=== PATIENT | female | born 1940 | race Caucasian/White ===

== ENCOUNTER → 2023-07-30 12:25 | Outpatient (REF) | payer MEDICARE, OTHER, SELFPAY | LOC: HWRAD 12:25 | PROVIDERS: ATTENDING PHYSICIAN Physician Assistant; FAMILY PHYSICIAN Family Medicine | DX: M79.672 Pain in left foot (principal) | CPT/HCPCS: 73630 ==

== ENCOUNTER → 2023-10-20 11:44 | Outpatient (REF) | payer MEDICARE, OTHER, SELFPAY ==
[2023-10-20 16:44] LABS: % Basophils 0.7 % (0-2); % Eosinophils 3.1 % (0-6); % Immature Granulocytes 0.2 % (0-0.5); % Lymphocytes 19.7 % (20.5-51.1); % Monocytes 9.6 % (1.7-9.3); % Neutrophils 66.7 % (42.2-75.2); Absolute Eosinophils 0.2 10^3/uL (0-0.7); Absolute Lymphocytes 1.2 10^3/uL (1.2-3.4); Absolute Monocytes 0.6 10^3/uL (0.1-0.6); Absolute Neutrophils 4.1 10^3/uL (1.4-6.5); Hematocrit 38.5 % (37.0-47.0); Hemoglobin 12.9 g/dL (12.0-16.0); Mean Corp Hgb Conc. 33.5 g/dL (33.0-37.0); Mean Corpuscular Hgb 31.2 pg (27.0-31.0); Mean Platelet Volume 11.1 fL (7.4-10.4); Nucleated Red Blood Cells % 0 %; Platelet Count 181 10^3/uL (130-400); Red Blood Cell Count 4.14 10^6/uL (4.20-5.40); Red Cell Dist. Width 13.3 % (11.5-14.5); White Blood Cell Count 6.2 10^3/uL (4.8-10.8)
[2023-10-20 16:49] LABS: Blood Urea Nitrogen 24 mg/dl (7-17); Glucose 93 mg/dl (70-99)
[2023-10-20 16:50] LABS: ALT (SGPT) 16 U/L (0-35); AST (SGOT) 33 U/L (14-36); Albumin 4.6 g/dl (3.5-5.0); Alkaline Phosphatase 78 U/L (38-126); Carbon Dioxide 28 mmol/L (22-30); Chloride 103 mmol/L (98-107); HDL Cholesterol 67 mg/dl; LDL Cholesterol, Calculated 63 mg/dl; Potassium 4.1 mmol/L (3.5-5.1); Sodium 140 mmol/L (135-145); Total Bilirubin 0.9 mg/dl (0.2-1.3); Total Cholesterol 148 mg/dl (50-199); Total Protein 7.4 g/dl (6.3-8.2); Triglyceride 90 mg/dl (10-149); Very Low Density Lipoprotein 18 mg/dl (0-30); eGFR > 60.00
[2023-10-20 17:03] LABS: NT-proBNP 542 pg/ml
[2023-10-20 17:19] LABS: TSH Reflex To Free T4 1.64 uIU/ml (0.47-4.68)
== END ==
LOC: HWLAB 11:44
PROVIDERS: ATTENDING PHYSICIAN Internal Medicine Cardiovascular Disease; FAMILY PHYSICIAN Family Medicine
DX: I10 Essential (primary) hypertension (principal); E04.1 Nontoxic single thyroid nodule; I48.0 Paroxysmal atrial fibrillation; Z79.01 Long term (current) use of anticoagulants; I50.32 Chronic diastolic (congestive) heart failure
CPT/HCPCS: 36415; 80053; 80061; 83880; 84443; 85025

== ENCOUNTER → 2023-11-14 08:50 | Outpatient (REF) | payer MEDICARE, OTHER, SELFPAY | LOC: HWRAD 08:50 | PROVIDERS: ATTENDING PHYSICIAN Family Medicine | DX: M81.0 Age-related osteoporosis without current pathological fracture (principal); Z12.31 Encounter for screening mammogram for malignant neoplasm of breast | CPT/HCPCS: 77063; 77067; 77080 ==

== ENCOUNTER → 2023-11-21 10:57 | Outpatient (REF) | payer MEDICARE, OTHER, SELFPAY | LOC: HWRAD 10:57 | PROVIDERS: ATTENDING PHYSICIAN Nurse Practitioner Family | DX: M79.671 Pain in right foot (principal) | CPT/HCPCS: 73630 ==

== ENCOUNTER → 2023-12-11 09:11 | Outpatient (REF) | payer MEDICARE, OTHER, SELFPAY | LOC: RAD 09:11 | PROVIDERS: ATTENDING PHYSICIAN Internal Medicine Gastroenterology; FAMILY PHYSICIAN Family Medicine | DX: R13.19 Other dysphagia (principal) | CPT/HCPCS: 74221 ==

== ENCOUNTER 2023-12-26 16:25 | Inpatient (IN) | payer MEDICARE, OTHER, SELFPAY ==
[2023-12-26] VITALS (11 sets, daily range): BP systolic 117–179; BP diastolic 58–87; BMI 39.8; BMI 38.8
--- NOTE | 2023-12-26 10:45 | EDRN ---
Emeka GIORDANO in room w/pt at this time.
[2023-12-26 10:50] LABS: % Basophils 0.7 % (0-2); % Eosinophils 3.4 % (0-6); % Immature Granulocytes 0.2 % (0-0.5); % Lymphocytes 19.3 % (20.5-51.1); % Neutrophils 64.4 % (42.2-75.2); Absolute Eosinophils 0.2 10^3/uL (0-0.7); Absolute Monocytes 0.6 10^3/uL (0.1-0.6); Absolute Neutrophils 3.4 10^3/uL (1.4-6.5); Hematocrit 37.8 % (37.0-47.0); Hemoglobin 12.7 g/dL (12.0-16.0); Mean Corp Hgb Conc. 33.6 g/dL (33.0-37.0); Mean Corpuscular Hgb 31.1 pg (27.0-31.0); Mean Corpuscular Volume 92.4 fL (81.0-99.0); Nucleated Red Blood Cells % 0 %; Platelet Count 198 10^3/uL (130-400); Red Blood Cell Count 4.09 10^6/uL (4.20-5.40); Red Cell Dist. Width 13.5 % (11.5-14.5); White Blood Cell Count 5.3 10^3/uL (4.8-10.8)
--- NOTE | 2023-12-26 10:52 | ED.GENMED ---
History of Present Illness
General
Chief Complaint: Chest Pain
Source: patient
Time Seen by Provider: 12/26/23 10:41
History of Present Illness
History of Present Illness:
83yo female with a history of atrial fibrillation, pacemaker, HTN, HLD, COPD presenting via EMS for evaluation of chest pain. Patient reports feeling unwell last evening. She started to develop central chest discomfort around 2 AM. Her chest
discomfort worsened while she was in the car with her son this morning prompting EMS call. Patient states it feels like something is sitting there and 'something does not feel right.' Patient received aspirin and nitroglycerin prehospital and is
currently feeling improved. She denies any diaphoresis, nausea, vomiting, dizziness, syncope, leg swelling.
Past History
Past History
ED Past Medical History: Arrthythmia (Atrial fibrillation), Asthma, COPD, HTN, Hypercholesterolemia and Other (ceervical radiculopathy); Negative CHF or [place]
ED Past Surgical History: , Gynecological and Orthopedic
Social History
Tobacco: Non-smoker
Alcohol: None
Drug: None
Personal: Single
Living: with family
Employment: Retired
Family History
Family History: Sudden
Phy Exam
General Physical Exam
General Presentation: well appearing and no apparent distress
General age: appears stated age
General Skin: warm and dry
General Habitus: elderly
General Mental: alert
Cardiovascular Exam
Cardiovascular Exam: no murmur and irregularly irregular
Pulmonary Exam
Pulmonary Exam: lungs clear, no respiratory distress and no crackles
Gastrointestinal Exam
Gastrointestinal Exam: non tender, soft and non distended
Musculoskeletal Exam
Musculoskeletal Exam: no edema
Skin Exam
Skin Exam: normal color and warm/dry
Psychiatric Exam
Psychiatric Exam: normal mood/affect
Scores
Heart Score for Chest Pain Patients
STEMI patient?: No
History: Moderately Suspicious
ECG: Nonspecific Repolarization
Age: >/= 65 years
Risk Factors: >/= 3 Risk Factors or History of CAD
Troponin: </= Normal Limit
Heart Score for Chest Pain Patients: 6
Heart Score Risk: 20.3% MACE over next 6 weeks
Course
Orders/Labs/Results
Orders:
Orders
12/26/23 10:07
Electrocardiogram (*1) Urgent
Reason for Study: Chest Pain
Cardiac Monitoring- Treatment ONCE
EKG- Treatment ONCE
IV Insert/Care/Rem.- Treatment PRN
12/26/23 10:34
Complete Blood Count/With Diff Urgent
Comprehensive Metabolic Panel Urgent
Troponin I Urgent
12/26/23 10:53
CR Chest - 2 Views Urgent
Comment:
Reason For Exam: CP
12/26/23 12:32
Electrocardiogram (*1) Urgent
Reason for Study: Chest Pain
EKG- Treatment ONCE
12/26/23 13:59
Troponin I Urgent
12/26/23 15:40
Heparin 4,000 units IV NOW STA
12/26/23 15:41
PTT Urgent
Comment: Obtain baseline before beginning heparin infusion if not already collected
Heparin Protocol- PTT Orders As Directed
PTT per Heparin protocol: -Obtain CBC and baseline PTT - if not already collected.
-Obtain PTT 6 hours from start of infusion. Then, every 6 hours until 2 consecutive
PTT's are therapeutic. Then, PTT Daily.
-With each rate change, obtain PTT every 6 hours until 2 consecutive PTT's are
therapeutic. Then, PTT Daily.
Notify MD As Directed
Notify physician if: PTT is greater than or equal to 200.
12/26/23 15:45
Heparin 04837 Units/250 ml 25,000 units in 250 ml IV PER PROTOCOL
Weight to be used for heparin protocol in kilograms (kg):: 98.5
Protocol:: Cardiac Tx/Acute Coronary
PTT Goal Range to be used:: PTT 73 to 111 seconds
Order type:: Initial
INITIAL Infusion Dose (UNITS/KG/hr) & then follow protocol:: 12 units/kg/hr
Infusion Dose in UNITS/hr & then follow protocol (UNITS/hr):: 1,000
INFUSION RATE in mL/hr & then follow protocol (mL/hr):: 10
PTT less than or equal to 64 seconds:: Increase rate by 200 units/hr (+ 2 mL/hr)
PTT 64.1 to 72.9 seconds:: Increase rate by 100 units/hr (+ 1 mL/hr)
PTT 73 to 111 seconds:: Target Range. No change in rate.
PTT 111.1 to 130.9 seconds:: Decrease rate by 100 units/hr (- 1 mL/hr)
PTT 131 to 199.9 seconds:: HOLD for 1 hr. Then decrease rate by 200 units/hr (- 2 mL/hr)
PTT greater than or equal to 200 seconds:: HOLD for 2 hrs & Notify Provider. Then decrease by 200 units/hr (-
2 mL/hr)
Lab follow-up:: Each change, PTT q6h until 2 consecutive are therapeutic. Then PTT
daily.
12/28/23 06:00
Complete Blood Count/No Diff Q2D
Comment: Notify MD if platelet count is <130,000 or decreases by 50% from baseline
12/30/23 06:00
Complete Blood Count/No Diff Q2D
Comment: Notify MD if platelet count is <130,000 or decreases by 50% from baseline
01/01/24 06:00
Complete Blood Count/No Diff Q2D
Comment: Notify MD if platelet count is <130,000 or decreases by 50% from baseline
01/03/24 06:00
Complete Blood Count/No Diff Q2D
Comment: Notify MD if platelet count is <130,000 or decreases by 50% from baseline
01/05/24 06:00
Complete Blood Count/No Diff Q2D
Comment: Notify MD if platelet count is <130,000 or decreases by 50% from baseline
01/07/24 06:00
Complete Blood Count/No Diff Q2D
Comment: Notify MD if platelet count is <130,000 or decreases by 50% from baseline
01/09/24 06:00
Complete Blood Count/No Diff Q2D
Comment: Notify MD if platelet count is <130,000 or decreases by 50% from baseline
01/11/24 06:00
Complete Blood Count/No Diff Q2D
Comment: Notify MD if platelet count is <130,000 or decreases by 50% from baseline
Abnormal Lab Results
12/26/23
10:34
RBC 4.09 L 10^6/uL
(4.20-5.40)
MCH 31.1 H pg
(27.0-31.0)
Absolute Lymphs (auto) 1.0 L 10^3/uL
(1.2-3.4)
Lymphocytes % 19.3 L %
(20.5-51.1)
Monocytes % 12.0 H %
(1.7-9.3)
BUN 27 H mg/dl
(7-17)
Glucose 111 H mg/dl
(70-99)
12/26/23 10:34
12/26/23 10:34
Vital Signs
Initial and Last Documented VS:
Initial Vital Signs
Temp Pulse Resp BP Pulse Ox
97.9 F 68 18 136/78 95
12/26/23 10:11 12/26/23 10:11 12/26/23 10:11 12/26/23 10:11 12/26/23 10:11
Last Documented Vital Signs
Temp Pulse Resp BP Pulse Ox
97.9 F 60 17 161/71 98
12/26/23 10:11 12/26/23 14:15 12/26/23 14:15 12/26/23 14:00 12/26/23 13:45
MDM/Problems Addressed
Differential Diagnosis Includes:
83yoF presenting with chest discomfort and 'not feeling right' that began last night. Hx of afib, AV block s/p pacemaker, CHF. Patient is afebrile and hemodynamically stable. She is well-appearing in no acute distress. Exam is reassuring.
Differential diagnosis includes but is not limited to: ACS, arrhythmia, GERD, nonspecific chest pain
Initial ED plan: Check cardiac labs, EKG, and chest x-ray. Will interrogate pacemaker.pain
*EKG
EKG Intrepretation Date: 12/26/23
Heart Rate: 71
Rate: normal
Rhythm: ventricular paced
Ischemia: no ischemia
*Critical Care Note
Total Time (30-74mins, 75-104mins- exclusive of procedures): Not Applicable
Update Note
Update Note:
Labs overall unremarkable. EKG shows ventricular paced rhythm and troponin is normal. Chest x-ray is clear. Case was discussed with cardiology and Dr. Lam evaluated patient at bedside. Cardiology recommending admission and she was admitted
to the hospitalist service for further evaluation.
ED Attending Note
-
Portions of this chart may have been created with voice recognition software.� Occasional wrong word or��sound alike� substitutions may have occurred due to the inherent limitations of voice recognition software.
Discharge Plan
Departure
Patient Disposition: Admit
Date of Disposition: 12/26/23
Time of Disposition: 15:45
Presentation/result/management discussed w/ accepting MD/DO: Hospitalist
Discharge Problem:
Chest pain
Prescriptions:
No Action
cetirizine 10 MG tablet
10 mg PO DAILY
oxybutynin chloride 5 MG tablet
5 mg PO DAILY
losartan 50 MG tablet
50 mg PO BID
terazosin 5 MG capsule
5 mg PO HS
simvastatin 20 MG tablet
20 mg PO HS
ascorbic acid (vitamin C) [Vitamin C] 500 MG tablet
1,000 mg PO DAILY
cholecalciferol (vitamin D3) 1,000 UNITS tablet
1,000 units PO DAILY
furosemide 20 mg tablet
20 mg PO DAILY
Trelegy Ellipta 100-62.5-25 mcg blister with device
1 ea INHALATION R DAILY
propranolol 20 MG tablet
20 mg PO DAILYPRN PRN (Reason: palpitations/afib)
albuterol sulfate 90 mcg/actuation Hfa Aerosol Inhaler
2 puff INHALATION R Q6HPRN PRN (Reason: sob)
dofetilide 250 MCG capsule
250 mcg PO BID
Xarelto 20 MG tablet
20 mg PO HS
metoprolol succinate 50 mg Tablet Extended Release 24 Hr
50 mg PO DAILY
Theragen Tablet
1 tab PO DAILY
amlodipine 5 mg Tablet
5 mg PO HS
acetaminophen [Tylenol Extra Strength] 500 mg Tablet
1,000 mg PO Q6HPRN PRN (Reason: mild pain)
bupropion HCl 150 mg Tablet Extended Release 24 Hr
150 mg PO DAILY
Referrals:
Yordy Triplett MD [Family Provider] -
Interventions
Interventions:
*Risk Screen - Suicide Last Done: 12/26/23 10:18
*General Assessment Last Done: 12/26/23 10:18
*Neglect/Abuse Screening Last Done: 12/26/23 10:18
ED- Fall Risk Assessment Last Done: 12/26/23 10:18
*ED COVID-19 Vaccine History Last Done: 12/26/23 10:18
ED- Cardiac Assessment Last Done: 12/26/23 10:35
Discharge Date and Time
Print Language: TAJIK
[2023-12-26 10:58] LABS: ALT (SGPT) 17 U/L (0-35); AST (SGOT) 28 U/L (14-36); Albumin 4.2 g/dl (3.5-5.0); Alkaline Phosphatase 73 U/L (38-126); Blood Urea Nitrogen 27 mg/dl (7-17); Calcium 9.4 mg/dl (8.4-10.2); Carbon Dioxide 29 mmol/L (22-30); Chloride 105 mmol/L (98-107); Estimated Creatinine Clearance 50 ml/min; Glucose 111 mg/dl (70-99); Sodium 139 mmol/L (135-145); Total Bilirubin 0.7 mg/dl (0.2-1.3); Total Protein 6.9 g/dl (6.3-8.2); eGFR > 60.00
[2023-12-26 11:10] LABS: Troponin I < 0.012 ng/ml
--- NOTE | 2023-12-26 11:20 | EDRN ---
reported verbal findings from pacemaker interrogation that were given to me to Dr. Ibarra and Emeka GIORDANO. Written report was sent.
--- NOTE | 2023-12-26 11:29 | EDRN ---
Pt OOB to BR at this time.
--- NOTE | 2023-12-26 11:34 | EDRN ---
Pt states pain remains a heavyness of 3/10 in substernal area and on ambulating to BR felt fatigue and sl SOB.
--- NOTE | 2023-12-26 13:06 | CON.CAR ---
Addendum entered and electronically signed by Papo Lam MD 12/26/23 16:48:
Patient seen and examined in collaboration with LEASING SALES CONSULTANT; agree with below.
-Patient with paroxysmal atrial fibrillation (on Xarelto), chronic HFpEF, hypertension, hyperlipidemia, COPD, and esophageal dysmotility presenting with chest pain.
-The patient states that this chest pain feels like someone is sitting on her chest and is not like her esophageal dysmotility symptoms.
-There is associated shortness of breath.
-The patient's symptoms did improve with SL nitroglycerin.
-Will obtain an echocardiogram now to reassess cardiac function and assess for wall motion abnormalities.
-Cardiac enzymes are negative thus far; continue to trend.
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
-Will give Nitropaste for now as patient still has mild symptoms.
-Case discussed with Interventional Cardiology; medical management for now, as cardiac troponin is negative.
-Will start heparin in the interim.
Original Note:
Consultation
Consultation Request
Date/Time Consultation Requested: 12/26/2023 12:45
Date/Time Consultation Performed: 12/26/2023 13:00
Requesting Provider: Suzanne Qiu PA-C
Performing Provider: NORAH Fermin for Dr. Lam
Reason for Consultation: Chest pain
Medical History
-
Chief Complaint: Chest pain
History of Present Illness:
Nargis Cotter is an 83-year-old female (known to Dr. Segura, her primary apartment rental clerk), with chronic HFpEF, paroxysmal atrial fibrillation (on dofetilide and rivaroxaban), COPD, hypertension, dyslipidemia, and esophageal dysmotility who presented to
the emergency department with a chief complaint of chest pain. Her chest pain has been constant since approximately 1 AM. She describes it as a pressure. It does not radiate. Nothing makes it better or worse. She has no associated symptoms of
diaphoresis, nausea, vomiting, shortness of breath, nor dizziness. She does endorse the sense of a general unwellness. Initial troponin <0.012.
Past Medical History
Past Medical History: Arrhythmias (Paroxysmal atrial fibrillation), CHF, COPD, HTN and Hypercholesterolemia
Past Surgical History: Appendectomy, and Orthopedic
Social History
Tobacco: Non-Smoker
Alcohol: None
Drug: None
Living: With Family
Employment: Retired
Family History
Family History: Reviewed & Not Pertinent
Allergies / Home Medications
Allergy/AdvReac Type Severity Reaction Status Date / Time
latex Allergy Redness, Verified 12/26/23 10:08
itching
�Medication �Instructions �Recorded �Confirmed �Type
cetirizine 10 mg tablet 10 mg PO DAILY Allergies 09/15/17 12/26/23 History
losartan 50 mg tablet 50 mg PO BID Blood pressure 09/15/17 12/26/23 History
oxybutynin chloride 5 mg tablet 5 mg PO DAILY Urinary issue 09/15/17 12/26/23 History
simvastatin 20 mg tablet 20 mg PO HS High cholesterol 09/15/17 12/26/23 History
terazosin 5 mg capsule 5 mg PO HS Blood pressure 09/15/17 12/26/23 History
ascorbic acid (vitamin C) 500 mg 1,000 mg PO DAILY Supplement 10/29/17 12/26/23 History
tablet (Vitamin C)
cholecalciferol (vitamin D3) 25 1,000 units PO DAILY Supplement 10/29/17 12/26/23 History
mcg (1,000 unit) tablet
fluticasone fur. 100 mcg-umeclid 1 ea inhalation R DAILY 04/22/22 12/26/23 History
62.5 mcg-vilant 25 mcg Lung/breathing issues
inhalat.powder (Trelegy Ellipta)
furosemide 20 mg tablet 20 mg PO DAILY Fluid 04/22/22 12/26/23 History
retention/Swelling
propranolol 20 mg tablet 20 mg PO DAILYPRN PRN 04/22/22 12/26/23 History
palpitations/afib
albuterol sulfate 90 mcg/actuation 2 puff inhalation R Q6HPRN PRN sob 05/29/22 12/26/23 History
aerosol inhaler
dofetilide 250 mcg capsule 250 mcg PO BID Arrhythmia 05/29/22 12/26/23 History
rivaroxaban 20 mg tablet (Xarelto) 20 mg PO HS Blood clot 05/29/22 12/26/23 History
prevention/tx
acetaminophen 500 mg tablet 1,000 mg PO Q6HPRN PRN mild pain 12/26/23 12/26/23 History
(Tylenol Extra Strength)
amlodipine 5 mg tablet 5 mg PO HS 12/26/23 12/26/23 History
bupropion HCl 150 mg 24 hr tablet, 150 mg PO DAILY 12/26/23 12/26/23 History
extended release
metoprolol succinate 50 mg 50 mg PO DAILY 12/26/23 12/26/23 History
tablet,extended release 24 hr
therapeutic multivitamin 1 tab PO DAILY 12/26/23 12/26/23 History
Review of Systems
-
History Source: Patient
All other systems: Negative unless noted
Constitutional: Fatigue
EENT: No Symptoms
Respiratory: No Symptoms
Cardiac: Chest Pain
Abdomen/GI: No Symptoms
: No Symptoms
Musculoskeletal: No Symptoms
Skin: No Symptoms
Neurological: No Symptoms
Endocrine: No Symptoms
Hematologic/Lymphatic: No Symptoms
Physical Exam
Vital Signs
Temp Pulse Resp BP Pulse Ox
97.9 F 60 15 129/67 97
12/26/23 10:11 12/26/23 11:15 12/26/23 11:15 12/26/23 11:00 12/26/23 11:15
Lab Results
12/26/23 10:34
12/26/23 10:34
Troponin I < 0.012 ng/ml 12/26/23 10:34
Physical Exam
General: Well Developed, Well Nourished, No Apparent Distress and Comfortable
HEENT: Normocephalic, Anicteric and Moist Mucous Membranes
Respiratory: Non Labored Respirations
Cardiac: S1/S2 and Irregular Rhythm; Negative Peripheral Edema
Breast: Deferred by me
GI: Soft, Non Tender, Non Distended and Normal Bowel Sounds
Rectal: Deferred by Provider
Genito-urinary: No Costovertebral Tender
Musculoskeletal: No Clubbing, No Cyanosis and No Edema
Skin: Warm and Dry
Neuro: AO x 3
Hematologic/Lymphatic: No Lymphadenopathy
Psych: Calm
Impression / Plan
-
Chest pain
-Pressure for >12 hours, never received complete relief
-Initial creatinine <0.012, trend
-EKG paced with underlying atrial fibrillation
Paroxysmal atrial fibrillation
-[place] was ~30% on her last outpatient device check on dofetilide
-Oral Anticoagulation: Xarelto 20 mg daily, she denies missed doses and abnormal bleeding
-[id number]: Score at least 5 (Heart failure, HTN, age 75 or more, female gender)
HFpEF, chronic, she does not appear to be in acute/decompensated heart failure
Second-degree atrioventricular block s/p PPM
Dysphagia with esophageal dysmotility and delayed emptying, follows with GI
COPD
Data Reviewed
-
EKG: Report Reviewed by me (Ventricular paced rhythm with underlying atrial fibrillation, rate 71)
Labs: Labs Reviewed by me
Old Records: Reviewed
[2023-12-26 14:28] LABS: Troponin I < 0.012 ng/ml
--- NOTE | 2023-12-26 15:49 | HPS.HSE ---
Family Physician
-
Family Physician: Yordy Triplett
Chief Complaint
-
Chest pain
History of Present Illness
83-year-old with past medical history for heart failure, A-fib, COPD, hypertension, dyslipidemia, esophageal dysmotility presented to us with chest pain. Patient states a constant pressure-like pain in th mid sternum. Pain does not radiate to the
shoulder neck back. stated sob. Patient denied any headache, dizziness, syncopal episode. Patient denied any fever, chills, runny nose, congestion, cough. Patient denied abdominal pain, nausea, vomiting, diarrhea. Patient denies dysuria hematuria
Troponin negative x 2 in ER. EKG with paced rhythm. Admitting for further management
Medical History
Past Medical History
Past Medical History: Reports Other
Additional Past Medical History:
A-fib
CHF
COPD
Hypertension
Hyperlipidemia
Past Surgical History: Reports Other
Additional Past Surgical History:
Appendectomy
Social History
Tobacco: Non-smoker
Alcohol: None
Drug: None
Living: With Family
Family History
Family History: Not pertinent
Allergies / Home Medications
Allergies reflects when Allergies were last updated in [facility].
Home Medications with original date entered in [facility]
Allergy/Medication List:
Allergies
Allergy/AdvReac Type Severity Reaction Status Date / Time
latex Allergy Redness, Verified 12/26/23 10:08
itching
Home Medications
cetirizine 10 mg tablet 10 mg PO DAILY Allergies 09/15/17
losartan 50 mg tablet 50 mg PO BID Blood pressure 09/15/17
oxybutynin chloride 5 mg tablet 5 mg PO DAILY Urinary issue 09/15/17
simvastatin 20 mg tablet 20 mg PO HS High cholesterol 09/15/17
terazosin 5 mg capsule 5 mg PO HS Blood pressure 09/15/17
ascorbic acid (vitamin C) 500 mg tablet (Vitamin C) 1,000 mg PO DAILY Supplement 10/29/17
cholecalciferol (vitamin D3) 25 mcg (1,000 unit) tablet 1,000 units PO DAILY Supplement 10/29/17
fluticasone fur. 100 mcg-umeclid 62.5 mcg-vilant 25 mcg inhalat.powder (Trelegy Ellipta) 1 ea inhalation R DAILY Lung/breathing issues 04/22/22
furosemide 20 mg tablet 20 mg PO DAILY Fluid retention/Swelling 04/22/22
propranolol 20 mg tablet 20 mg PO DAILYPRN PRN palpitations/afib 04/22/22
albuterol sulfate 90 mcg/actuation aerosol inhaler 2 puff inhalation R Q6HPRN PRN sob 05/29/22
dofetilide 250 mcg capsule 250 mcg PO BID Arrhythmia 05/29/22
rivaroxaban 20 mg tablet (Xarelto) 20 mg PO HS Blood clot prevention/tx 05/29/22
acetaminophen 500 mg tablet (Tylenol Extra Strength) 1,000 mg PO Q6HPRN PRN mild pain 12/26/23
amlodipine 5 mg tablet 5 mg PO HS 12/26/23
bupropion HCl 150 mg 24 hr tablet, extended release 150 mg PO DAILY 12/26/23
metoprolol succinate 50 mg tablet,extended release 24 hr 50 mg PO DAILY 12/26/23
therapeutic multivitamin 1 tab PO DAILY 12/26/23
Review of Systems
-
Constitutional: Reports No Symptoms
EENT: Reports No Symptoms
Respiratory: Reports No Symptoms
Cardiac: Reports Chest Pain
Abdomen/GI: Reports No Symptoms
: Reports No Symptoms
Musculoskeletal: Reports No Symptoms
Skin: Reports No Symptoms
Neurological: Reports No Symptoms
Endocrine: Reports No Symptoms
Hematologic/Lymphatic: Reports No Symptoms
Psych: Reports No Symptoms
Physical Exam
Vital Signs
Vital Signs
Temp Pulse Resp BP Pulse Ox
97.9 F 63 19 159/87 98
12/26/23 10:11 12/26/23 15:45 12/26/23 15:45 12/26/23 15:00 12/26/23 15:45
Physical Exam
General: Well Developed, Well Nourished and No Apparent Distress
HEENT: NormoCephalic, Moist mucous membranes and Atraumatic
Respiratory: Clear
Cardiac: S1/S2 and Regular Rhythm; No Murmur or Rub
GI: Soft, Non Tender, Non Distended and Normal Bowel Sounds; No Organomegaly
Rectal: Deferred by Provider
Musculoskeletal: No Clubbing, No Cyanosis and No Edema
Skin: No Rash
Neuro: AO x 3 and Nonfocal/grossly intact
Psych: Calm
Laboratory Results
-
12/26/23 10:34
12/26/23 10:34
Laboratory Results
Total Bilirubin 0.7 mg/dl (0.2-1.3) 12/26/23 10:34
AST 28 U/L (14-36) 12/26/23 10:34
ALT 17 U/L (0-35) 12/26/23 10:34
Alkaline Phosphatase 73 U/L (38-126) 12/26/23 10:34
Troponin I < 0.012 ng/ml 12/26/23 13:59
Troponin I Cancelled 12/26/23 13:59
Data Reviewed
-
Diagnostic Radiology: Report Reviewed by me
Lab Data: Labs Reviewed by me
Impression/Plan
-
# Chest pain r/o ACS
-EKG with paced rhythm with underlying A-fib
-Troponin normal x 2
-Chest x-ray with mild cardiomegaly without associated pulmonary edema
-Trend troponin
-initiated on heparin drip
-asa continued
# Paroxysmal A-fib
-on heparin drip, held xarelto.
-Tikosyn continued
-Metoprolol continued
-Propranolol continued
# Chronic heart failure
-Patient is not in acute exacerbation
-Furosemide continued
# History of dysphagia with esophageal dysmotility and delayed emptying
-Patient follows with GI as an outpatient
# History of COPD
-Not in acute exacerbation
-Albuterol, Trelegy continued
# Essential hypertension
-Blood pressure stable in ER
-Norvasc, losartan, terazosin continued with hold parameters
# Anxiety
-Bupropion continued
# Urinary retention
-Oxybutynin continued
# Hyperlipidemia
-Statin continued
# DVT proph
-heparin drip
# CODE STATUS
-Full code
[2023-12-26] MEDS: HEPARIN 4000 UNITS IV (16:07)
[2023-12-26] MEDS: HEPARIN 25000 UNITS/250 ML IV (16:08)
[2023-12-26 16:26] LABS: APTT 33.2 Sec (23.4-35.0)
--- NOTE | 2023-12-26 16:27 | W.PN.UPDATE ---
Update Note
Progress Note Update
Patient seen and examined and discussed with LACHELLE Merchant, and I agree with her note.
Gen-AAOx3, NAD, morbid obesity
HEENT-NC, AT, anicteric, clear oral mm
Neck-supple
CV-reg, no M, +S1/S2
Lungs-clear B/L
Abd-soft, NT, ND
Ext-no edema
Musculoskeletal-no cyanosis, clubbing
Skin-warm and dry
Neuro-grossly non-focal
Psych-calm, cooperative
ACS -troponin negative so far. EKG shows ventricular paced rhythm with underlying atrial fibrillation. Admit to telemetry. Consult cardiology. IV heparin drip. Still having chest pressure and mild shortness of breath but less severe than
earlier. Start aspirin.
Chronic heart failure preserved EF -stable.
Paroxysmal atrial fibrillation -on Xarelto.
Essential hypertension
COPD without exacerbation
Hyperlipidemia
Esophageal dysmotility -had an EGD in 2018 that showed a benign-appearing esophageal stenosis, gastritis.
Permanent pacemaker
Morbid obesity due to excess calories
Full code
[2023-12-26 19:15] LABS: Troponin I < 0.012 ng/ml
[2023-12-26] MEDS: SYMBICORT 80/4.5 MCG INHALER INH (19:36)
[2023-12-26] MEDS: NITRO-BID 0.5 INCH TOPICAL (20:06)
[2023-12-26] MEDS: COZAAR 50 MG PO (20:08)
[2023-12-26] MEDS: TIKOSYN 250 MCG PO (20:08)
[2023-12-26] MEDS: LIPITOR 10 MG PO (21:28)
[2023-12-26] MEDS: NORVASC 5 MG PO (21:28)
[2023-12-26] MEDS: HYTRIN 5 MG PO (21:28)
[2023-12-26 22:16] LABS: APTT 65.5 Sec (23.4-35.0)
[2023-12-27] VITALS (10 sets, daily range): BP systolic 110–145; BP diastolic 49–74; PULSE 60; O2SAT 96; BMI 38.9
[2023-12-27] MEDS: TYLENOL 650 MG PO (00:44)
[2023-12-27 00:58] LABS: Troponin I < 0.012 ng/ml
--- NOTE | 2023-12-27 01:15 | PTCARENOTE ---
Pt with bleeding from L AC site X2 pressure dressings placed. IVT notified placed quikclot dressing with james wrap. Removed james wrap 1 hour after per VAT- no further bleeding noted.
[2023-12-27] MEDS: NITRO-BID 0.5 INCH TOPICAL ×4 (02:01→23:47)
[2023-12-27 04:48] LABS: Hematocrit 36.8 % (37.0-47.0); Hemoglobin 12.7 g/dL (12.0-16.0); Mean Corp Hgb Conc. 34.5 g/dL (33.0-37.0); Mean Corpuscular Hgb 31.7 pg (27.0-31.0); Mean Corpuscular Volume 91.8 fL (81.0-99.0); Mean Platelet Volume 10.3 fL (7.4-10.4); Platelet Count 189 10^3/uL (130-400); Red Blood Cell Count 4.01 10^6/uL (4.20-5.40); Red Cell Dist. Width 13.3 % (11.5-14.5); White Blood Cell Count 6.5 10^3/uL (4.8-10.8)
[2023-12-27] MEDS: NITRO-BID TOPICAL (05:10)
[2023-12-27 05:14] LABS: Blood Urea Nitrogen 28 mg/dl (7-17); Calcium 9.5 mg/dl (8.4-10.2); Carbon Dioxide 24 mmol/L (22-30); Chloride 107 mmol/L (98-107); Estimated Creatinine Clearance 56 ml/min; Glucose 102 mg/dl (70-99); HDL Cholesterol 58 mg/dl; LDL Cholesterol, Calculated 86 mg/dl; Potassium 3.8 mmol/L (3.5-5.1); Sodium 139 mmol/L (135-145); Total Cholesterol 163 mg/dl (50-199); Triglyceride 97 mg/dl (10-149); Very Low Density Lipoprotein 19 mg/dl (0-30); eGFR > 60.00
[2023-12-27 06:02] LABS: APTT 65.1 Sec (23.4-35.0)
[2023-12-27] MEDS: SYMBICORT 80/4.5 MCG INHALER 2 PUFF INH ×2 (07:46→18:21)
[2023-12-27] MEDS: SPIRIVA RESPIMAT 2.5 MCG 2 PUFF INH (07:46)
[2023-12-27] MEDS: LASIX 20 MG PO (07:55)
[2023-12-27] MEDS: TIKOSYN 250 MCG PO ×2 (07:56→19:57)
[2023-12-27] MEDS: TOPROL XL 50 MG PO (07:56)
[2023-12-27] MEDS: WELLBUTRIN XL (24 hour extended release) 150 MG PO (07:56)
[2023-12-27] MEDS: LOW STRENGTH ASPIRIN 81 MG PO (07:56)
[2023-12-27] MEDS: COZAAR 50 MG PO ×2 (07:56→23:53)
[2023-12-27] MEDS: DITROPAN 5 MG PO (07:56)
--- NOTE | 2023-12-27 09:04 | W.PN.CD ---
Today's Communication / Plan
-
-Chest pain is currently 1/10; received Nitropaste last evening.
-Troponins have been negative thus far.
-Echocardiogram yesterday revealed an LVEF of 60-65%, wall motion consistent with conduction abnormality, severe biatrial enlargement, and moderate tricuspid regurgitation (PAP 40-45 mmHg).
-Given continued symptoms, patient will undergo cardiac catheterization on Friday for definitive coronary assessment.
-Continue aspirin.
-Holding Xarelto for cardiac catheterization on Friday; currently on a heparin drip--continue.
Impression / Plan
-
Chest pain
-Pressure for >12 hours, never received complete relief
-Chest pain is currently 1/10; received Nitropaste last evening.
-Troponins have been negative thus far.
-Echocardiogram yesterday revealed an LVEF of 60-65%, wall motion consistent with conduction abnormality, severe biatrial enlargement, and moderate tricuspid regurgitation (PAP 40-45 mmHg).
-Given continued symptoms, patient will undergo cardiac catheterization on Friday for definitive coronary assessment.
-Continue aspirin.
Paroxysmal atrial fibrillation
-[place] was ~30% on her last outpatient device check on dofetilide
-Oral Anticoagulation: Xarelto 20 mg daily, she denies missed doses and abnormal bleeding
-[id number]: Score at least 5 (Heart failure, HTN, age 75 or more, female gender)
-Holding Xarelto for cardiac catheterization on Friday; currently on a heparin drip--continue.
HFpEF, chronic, she does not appear to be in acute/decompensated heart failure
-Will continue to monitor volume status closely.
-Continue Lasix 20 mg daily.
Second-degree atrioventricular block--stable s/p PPM
Dysphagia with esophageal dysmotility and delayed emptying, follows with GI--patient states that her typical symptoms are different than what she is feeling currently.
COPD--respiratory appears to be stable.
Physical Exam
Vital Signs/Labs
Vital Signs
Temp Pulse Resp BP Pulse Ox
97.6 F 61 16 128/53 97
12/27/23 07:20 12/27/23 07:49 12/27/23 07:49 12/27/23 07:20 12/27/23 07:49
12/26/23 12/27/23 12/28/23
06:59 06:59 06:59
Actual Weight 96.388 kg
12/27/23 04:40
12/27/23 04:40
APTT 65.1 Sec (23.4-35.0) H 12/27/23 05:37
Triglycerides 97 mg/dl (10-149) 12/27/23 04:40
LDL Cholesterol, Calc 86 mg/dl 12/27/23 04:40
VLDL Cholesterol, Calc 19 mg/dl (0-30) 12/27/23 04:40
HDL Cholesterol 58 mg/dl 12/27/23 04:40
LAB Results
12/26/23 12/26/23 12/26/23
10:34 13:59 13:59
Troponin I < 0.012 < 0.012 Cancelled
12/26/23 12/27/23
18:23 00:19
Troponin I < 0.012 < 0.012
Physical Exam
Constitutional: No acute distress and Comfortable
EENT: Anicteric and Moist mucous membranes
Cardiovascular: Rhythm & rate is regular, Pedal edema is absent, Systolic murmur present (/6) and S1S2 is normal
Respiratory: Respiratory effort normal and Lungs clear to auscul.
GI: Soft
Neuro/Psych: AO x 3
Other: Skin (Warm, dry, intact)
Data Reviewed
-
Date of Service: December 27, 2023
EKG: Tracing Personally Visualized and interpreted (AV paced)
Echo: Tracing Personally Visualized and interpreted (12/26/2023: EF 60-65%, wall motion consistent with conduction abnormality; severe biatrial enlargement; moderate TR, PASP 40-45 mmHg.)
Medical Tests (PFT, Pathology etc): Discussed with Patient
Labs: Labs Reviewed by me
[2023-12-27 10:58] LABS: Glycohemoglobin (HgbA1c) 5.6 % (4.0-5.6)
--- NOTE | 2023-12-27 12:47 | W.PN.HOSP.TC ---
Today's Communication/Plan
-
Continue current care
Assessment / Plan
Assessment / Plan
Gen-AAOx3, NAD
HEENT-NC, AT, anicteric, clear oral mm
Neck-supple
CV-reg, no M, +S1/S2
Lungs-clear B/L
Abd-soft, NT, ND
Ext-no edema
Musculoskeletal-no cyanosis, clubbing
Skin-warm and dry
Neuro-grossly non-focal
Psych-calm, cooperative
Chest pressure -possible ACS. Troponins negative. Await cardiac catheterization on Friday as per cardiology. Currently on IV heparin drip.
Chronic heart failure preserved EF -stable. Echocardiogram done on December 25 shows LVEF 60 to 65%, wall motion consistent with conduction abnormality, normal RV size and function, severely dilated left atrium, severely dilated right atrium. Moderate
TR.
Paroxysmal atrial fibrillation -hold Xarelto while using IV heparin.
Essential hypertension -stable.
COPD without exacerbation
Hyperlipidemia
Esophageal dysmotility -had an EGD in 2017 that showed a benign-appearing esophageal stenosis, gastritis.
Permanent pacemaker
Morbid obesity due to excess calories
Full code
Anticipated Discharge: > 48 hours
Subjective/Interval History
-
Date of Service: December 27, 2023
Patient seen and examined. Mild chest pressure. Mild dyspnea on exertion.
Objective Data
-
Labs:
Laboratory Results
12/27/23 12/27/23 12/27/23
04:40 05:37 12:10
WBC 6.5
Hgb 12.7
Hct 36.8 L
Plt Count 189
APTT Cancelled 65.1 H Pending
Sodium 139
Potassium 3.8
Chloride 107
Carbon Dioxide 24
BUN 28 H
Creatinine 0.8
Glucose 102 H
Calcium 9.5
Vital Signs:
Vital Signs
Temp Pulse Resp BP Pulse Ox
97.9 F 66 18 133/66 98
12/27/23 11:05 12/27/23 11:05 12/27/23 11:05 12/27/23 11:05 12/27/23 11:05
I&O
12/26/23 12/27/23 12/28/23
06:59 06:59 06:59
Intake Total 480 / 480
Balance 480 / 480
Review of Systems
-
History Source: Patient
All other systems: Reviewed and negative
[2023-12-27] MEDS: HEPARIN 25000 UNITS/250 ML IV (13:05)
[2023-12-27 13:16] LABS: APTT 70.5 Sec (23.4-35.0)
[2023-12-27 20:00] LABS: APTT 78.6 Sec (23.4-35.0)
[2023-12-27] MEDS: COZAAR PO (20:45)
[2023-12-27] MEDS: NORVASC 5 MG PO (21:41)
[2023-12-27] MEDS: LIPITOR 10 MG PO (21:41)
[2023-12-27] MEDS: HYTRIN 5 MG PO (21:41)
--- NOTE | 2023-12-28 00:15 | VATNOTE ---
VAT paged to assess patient's LAC from old IV site as it continued to bleed after pressure dressing was applied by primary RN. Patient is currently on heparin, primary RN stated she changed the dressing several times over the past few hours and the
site continues to bleed. This VAT RN applied quikclot at [phone], gauze and then a pressure dressing via james wrap. Primary RN to remove pressure dressing after 1 hour. Will continue to monitor.
[2023-12-28 02:33] LABS: APTT 79.3 Sec (23.4-35.0)
--- NOTE | 2023-12-28 02:45 | PTCARENOTE ---
Pt with 10 beat run v tach, asymptomatic BP 184/83 pt stating 'i just walked back from [place]'. House SPIRITUAL MINISTER aware order for mag level.
[2023-12-28 03:28] VITALS: BP 132/58
[2023-12-28] MEDS: NITRO-BID 0.5 INCH TOPICAL ×3 (05:20→17:20)
[2023-12-28 06:00] VITALS: BMI 39.2
[2023-12-28 07:00] VITALS: BP 153/69
[2023-12-28] MEDS: SPIRIVA RESPIMAT 2.5 MCG 2 PUFF INH (07:24)
[2023-12-28] MEDS: SYMBICORT 80/4.5 MCG INHALER 2 PUFF INH ×2 (07:24→19:29)
[2023-12-28 07:55] LABS: Hematocrit 33.2 % (37.0-47.0); Hemoglobin 11.5 g/dL (12.0-16.0); Mean Corp Hgb Conc. 34.6 g/dL (33.0-37.0); Mean Corpuscular Hgb 31.6 pg (27.0-31.0); Mean Corpuscular Volume 91.2 fL (81.0-99.0); Mean Platelet Volume 10.4 fL (7.4-10.4); Platelet Count 166 10^3/uL (130-400); Red Blood Cell Count 3.64 10^6/uL (4.20-5.40); Red Cell Dist. Width 13.3 % (11.5-14.5); White Blood Cell Count 6.2 10^3/uL (4.8-10.8)
[2023-12-28 07:59] LABS: APTT 91.8 Sec (23.4-35.0)
[2023-12-28 08:31] LABS: Blood Urea Nitrogen 30 mg/dl (7-17); Calcium 9.5 mg/dl (8.4-10.2); Carbon Dioxide 26 mmol/L (22-30); Chloride 105 mmol/L (98-107); Estimated Creatinine Clearance 45 ml/min; Glucose 90 mg/dl (70-99); Magnesium 2.1 mg/dl (1.6-2.3); Potassium 3.8 mmol/L (3.5-5.1); Sodium 139 mmol/L (135-145); eGFR 55.21
[2023-12-28] MEDS: HEPARIN 25000 UNITS/250 ML IV (08:53)
[2023-12-28] MEDS: TIKOSYN 250 MCG PO ×2 (08:54→19:43)
[2023-12-28] MEDS: LASIX 20 MG PO (08:56)
[2023-12-28] MEDS: WELLBUTRIN XL (24 hour extended release) 150 MG PO (08:56)
[2023-12-28] MEDS: LOW STRENGTH ASPIRIN 81 MG PO (08:56)
[2023-12-28] MEDS: TOPROL XL 50 MG PO (08:56)
[2023-12-28] MEDS: DITROPAN 5 MG PO (08:58)
[2023-12-28] MEDS: COZAAR PO ×2 (08:58→19:42)
[2023-12-28 11:07] VITALS: BP 129/65
--- NOTE | 2023-12-28 11:28 | W.PN.HOSP.TC ---
Today's Communication/Plan
-
Bowel regimen
N.p.o. after midnight
Assessment / Plan
Assessment / Plan
Gen-AAOx3, NAD, obese
HEENT-NC, AT, anicteric, clear oral mm
Neck-supple
CV-reg, no M, +S1/S2
Lungs-clear B/L
Abd-soft, NT, ND
Ext-no edema
Musculoskeletal-no cyanosis, clubbing
Skin-warm and dry
Neuro-grossly non-focal
Psych-calm, cooperative
Chest pressure -possible ACS. Troponins negative. Await cardiac catheterization on Friday as per cardiology. Currently on IV heparin drip.
Chronic heart failure preserved EF -stable. Echocardiogram done on December 25 shows LVEF 60 to 65%, wall motion consistent with conduction abnormality, normal RV size and function, severely dilated left atrium, severely dilated right atrium. Moderate
TR.
Paroxysmal atrial fibrillation -hold Xarelto while using IV heparin.
Constipation -glycerin suppository, MiraLAX ordered. She uses these meds at home.
Essential hypertension -stable.
COPD without exacerbation
Hyperlipidemia
Esophageal dysmotility -had an EGD in 2017 that showed a benign-appearing esophageal stenosis, gastritis.
Permanent pacemaker
Morbid obesity due to excess calories
Full code
Anticipated Discharge: 24 - 48 hours
Subjective/Interval History
-
Date of Service: December 28, 2023
Patient seen and examined. Complaining of dyspnea on exertion, constipation. Denies chest pain or pressure.
Objective Data
-
Labs:
Laboratory Results
12/28/23 12/28/23 12/28/23
02:13 06:54 08:15
WBC 6.2
Hgb 11.5 L
Hct 33.2 L
Plt Count 166
APTT 79.3 H 91.8 H Cancelled
Sodium 139
Potassium 3.8
Chloride 105
Carbon Dioxide 26
BUN 30 H
Creatinine 1.0
Glucose 90
Calcium 9.5
Vital Signs:
Vital Signs
Temp Pulse Resp BP Pulse Ox
98.1 F 68 18 129/65 97
12/28/23 11:07 12/28/23 11:14 12/28/23 11:07 12/28/23 11:14 12/28/23 11:07
I&O
12/27/23 12/28/23 12/29/23
06:59 06:59 06:59
Intake Total 480 / 480 960 / 960
Balance 480 / 480 960 / 960
Review of Systems
-
History Source: Patient
All other systems: Reviewed and negative
[2023-12-28] MEDS: GLYCERIN SUPPOSITORY ADULT 1 SUPP RECTAL (11:43)
[2023-12-28] MEDS: MIRALAX 17 GRAMS PO (11:43)
--- NOTE | 2023-12-28 12:20 | W.PN.CD ---
Today's Communication / Plan
-
-Chest pain has finally resolved; still with some residual shortness of breath.
-Cardiac troponin negative, but symptoms concerning for unstable angina.
-Cardiac catheterization tomorrow for definitive coronary assessment.
-Continue aspirin and heparin drip.
-NPO after MN.
Impression / Plan
-
Chest pain
-Pressure for >12 hours, never received complete relief
-Chest pain has finally resolved; still with some residual shortness of breath.
-Cardiac troponin negative, but symptoms concerning for unstable angina.
-Echocardiogram this admission revealed an LVEF of 60-65%, wall motion consistent with conduction abnormality, severe biatrial enlargement, and moderate tricuspid regurgitation (PAP 40-45 mmHg).
-Cardiac catheterization tomorrow for definitive coronary assessment.
-Continue aspirin and heparin drip.
-NPO after MN.
Paroxysmal atrial fibrillation
-[place] was ~30% on her last outpatient device check on dofetilide
-Oral Anticoagulation: Xarelto 20 mg daily, she denies missed doses and abnormal bleeding
-[id number]: Score at least 5 (Heart failure, HTN, age 75 or more, female gender)
-Holding Xarelto for cardiac catheterization on Friday; continue heparin drip.
HFpEF, chronic, she does not appear to be in acute/decompensated heart failure
-Will continue to monitor volume status closely.
-Continue Lasix 20 mg daily.
Second-degree atrioventricular block--stable s/p PPM
Dysphagia with esophageal dysmotility and delayed emptying, follows with GI--patient states that her typical symptoms are different than what she is feeling currently.
COPD--mild shortness of breath.
Physical Exam
Vital Signs/Labs
Vital Signs
Temp Pulse Resp BP Pulse Ox
98.1 F 68 18 129/65 97
12/28/23 11:07 12/28/23 11:14 12/28/23 11:07 12/28/23 11:14 12/28/23 11:07
12/27/23 12/28/23 12/29/23
06:59 06:59 06:59
Actual Weight 96.388 kg 97.097 kg
12/28/23 06:54
12/28/23 06:54
APTT Cancelled 12/28/23 08:15
Magnesium 2.1 mg/dl (1.6-2.3) 12/28/23 06:54
Triglycerides 97 mg/dl (10-149) 12/27/23 04:40
LDL Cholesterol, Calc 86 mg/dl 12/27/23 04:40
VLDL Cholesterol, Calc 19 mg/dl (0-30) 12/27/23 04:40
HDL Cholesterol 58 mg/dl 12/27/23 04:40
LAB Results
12/26/23 12/26/23 12/26/23
10:34 13:59 13:59
Troponin I < 0.012 < 0.012 Cancelled
12/26/23 12/27/23
18:23 00:19
Troponin I < 0.012 < 0.012
Physical Exam
Constitutional: No acute distress and Comfortable
EENT: Anicteric
Cardiovascular: Rhythm & rate is regular, Pedal edema present (Trace), Systolic murmur present (2/6) and S1S2 is normal
Respiratory: Respiratory effort normal and Lungs clear to auscul.
GI: Soft
Neuro/Psych: Alert
Other: Skin (Warm, dry, intact)
Data Reviewed
-
Date of Service: December 28, 2023
EKG: Tracing Personally Visualized and interpreted (Telemetry: Atrial paced rhythm)
Medical Tests (PFT, Pathology etc): Discussed with Physician (Primary Hospitalist) and Discussed with Patient
Labs: Labs Reviewed by me
[2023-12-28 15:06] VITALS: BP 128/59
--- NOTE | 2023-12-28 15:52 | CM ---
CM met with pt bedside
Pt resides with her son in a ranc[place] with basement, 2STE
Son lives in basement area and works out of home during days
Pt notes independence with use of SPC/WW in community dependent on distance
No financial insecurities
Indep with ADLs
Pt current with outpt PT for R shoulder
PCP- Yordy Triplett
rx- [facility]
Plan for cardiac cath tomorrow
PT/OT following with VN vs outpt recs
Discharge Disposition- home with [facility] outpt PT vs VN
--- NOTE | 2023-12-28 16:16 | CHAP ---
Visited with Nargis at 2:20 for an extended period. She greeted me warmly and shared her story - Nargis has a strong spirit and a loving heart. She is a bit anxious about having anesthesia. Emotional and spiritual support provided.
[2023-12-28 19:40] VITALS: BP 129/81
[2023-12-28] MEDS: HYTRIN PO (21:36)
[2023-12-28] MEDS: NORVASC PO (21:37)
[2023-12-28] MEDS: LIPITOR 10 MG PO (21:39)
[2023-12-28 23:31] VITALS: BP 121/45
[2023-12-29] VITALS (13 sets, daily range): BP systolic 111–175; BP diastolic 60–96; BMI 39.1
[2023-12-29] MEDS: NITRO-BID 0.5 INCH TOPICAL ×2 (01:09→06:18)
[2023-12-29] MEDS: HEPARIN 25000 UNITS/250 ML IV (05:33)
[2023-12-29] MEDS: SYMBICORT 80/4.5 MCG INHALER 2 PUFF INH ×2 (07:19→19:41)
[2023-12-29] MEDS: SPIRIVA RESPIMAT 2.5 MCG 2 PUFF INH (07:19)
[2023-12-29] MEDS: TIKOSYN 250 MCG PO ×2 (07:39→19:51)
[2023-12-29] MEDS: LOW STRENGTH ASPIRIN 81 MG PO (07:40)
[2023-12-29] MEDS: COZAAR 50 MG PO ×2 (07:40→19:50)
[2023-12-29] MEDS: LASIX 20 MG PO (07:40)
[2023-12-29] MEDS: MIRALAX PO (07:40)
[2023-12-29] MEDS: DITROPAN 5 MG PO (07:40)
[2023-12-29] MEDS: WELLBUTRIN XL (24 hour extended release) 150 MG PO (07:40)
[2023-12-29] MEDS: TOPROL XL 50 MG PO (07:40)
--- NOTE | 2023-12-29 09:18 | W.PN.CD ---
Today's Communication / Plan
-
Cardiac Catheterization today.
Impression / Plan
-
Impression/Plan: 83 y/o femal with PAF/second degree AV block s/p PPM, HTN, HFpEF and COPD admitted with suspicious chest pain.
#Chest pain
-Acute.
-Pressure for >12 hours. Chest pain has finally resolved; still with some residual shortness of breath.
-Cardiac troponin negative, but symptoms concerning for unstable angina.
-Echocardiogram this admission revealed an LVEF of 60-65%, wall motion consistent with conduction abnormality, severe biatrial enlargement, and moderate tricuspid regurgitation (PAP 40-45 mmHg).
-Continue aspirin and heparin drip.
-Cardiac catheterization today for clarification of coronary anatomy.
#Paroxysmal atrial fibrillation
-Currently in NSR.
-[place] was ~30% on her last outpatient device check on dofetilide and metoprolol (propanolol PRN).
-[id number]: Score at least 5 (Heart failure, HTN, age 75 or more, female gender).
-Oral Anticoagulation: Xarelto 20 mg daily, she denies missed doses and abnormal bleeding.
#HFpEF
-Chronic. She does not appear to be in acute/decompensated heart failure. We will check LVEDP at cath.
-Continue Lasix 20 mg daily.
#Hypertension
-Chronic, stable.
-Continue losartan, metoprolol.
#Second-degree atrioventricular block--stable s/p PPM
#Dysphagia with esophageal dysmotility and delayed emptying, follows with GI--patient states that her typical symptoms are different than what she is feeling currently.
#COPD--mild shortness of breath.
Subjective/Interval History:
Chest pain resolved.
Weight stable.
BP is mildly elevated.
Labs pending.
DATA:
TTE, 12/26/2023:
CONCLUSIONS
LV ejection fraction is 60-65%. Wall motion is consistent with conduction
abnormality.
Normal right ventricular size and function. Pacer wire seen in right ventricle.
Severely dilated left atrium. Severely dilated right atrium.
Aortic sclerosis without stenosis.
Moderate tricuspid regurgitation. Estimated pulmonary artery pressure of 40-45
mmHg.
No significant change since the prior study of 05/29/22.
Physical Exam
Vital Signs/Labs
Vital Signs
Temp Pulse Resp BP Pulse Ox
36.4 C 66 16 146/74 95
12/29/23 07:00 12/29/23 07:40 12/29/23 07:24 12/29/23 07:40 12/29/23 07:24
12/27/23 12/28/23 12/29/23
11:59 11:59 11:59
Actual Weight 96.388 kg 97.097 kg 96.757 kg
APTT Cancelled 12/28/23 08:15
Magnesium 2.1 mg/dl (1.6-2.3) 12/28/23 06:54
Triglycerides 97 mg/dl (10-149) 12/27/23 04:40
LDL Cholesterol, Calc 86 mg/dl 12/27/23 04:40
VLDL Cholesterol, Calc 19 mg/dl (0-30) 12/27/23 04:40
HDL Cholesterol 58 mg/dl 12/27/23 04:40
LAB Results
12/26/23 12/26/23 12/26/23
10:34 13:59 13:59
Troponin I < 0.012 < 0.012 Cancelled
12/26/23 12/27/23
18:23 00:19
Troponin I < 0.012 < 0.012
Physical Exam
Constitutional: No acute distress and Comfortable
EENT: Anicteric and Moist mucous membranes
Cardiovascular: Rhythm & rate is regular, JVD pressure is normal, S1S2 is normal and Murmur/rub/gallop absent
Respiratory: Respiratory effort normal, Lungs clear to auscul., Wheeze Absent, Crackles Absent and Rhonchi Absent
GI: Soft, Distention absent, Flat, Non tender and Normal bowel sounds
Neuro/Psych: AO x 3
Data Reviewed
-
Date of Service: December 29, 2023
Medical Decision Making: Reviewed Test Results, Independent Historian Assessment and Test Interpretation
EKG: Tracing Personally Visualized and interpreted
Echo: Report Reviewed by me
X-Ray/CT/US/MRI/NUC/PET: Image Personally Visualized and interpreted and Report Reviewed by me
Labs: Labs Reviewed by me
[2023-12-29 09:58] LABS: APTT 93.1 Sec (23.4-35.0)
[2023-12-29 10:07] LABS: ACT-LR - POC 380 Seconds (116-155)
[2023-12-29 10:16] LABS: Blood Urea Nitrogen 26 mg/dl (7-17); Calcium 9.8 mg/dl (8.4-10.2); Carbon Dioxide 26 mmol/L (22-30); Chloride 104 mmol/L (98-107); Estimated Creatinine Clearance 56 ml/min; Glucose 88 mg/dl (70-99); Potassium 4.2 mmol/L (3.5-5.1); Sodium 139 mmol/L (135-145); eGFR > 60.00
--- NOTE | 2023-12-29 10:30 | ITS.CL.ANGIO ---
Regulatory Compliance Manager - Angioplasty
Angioplasty
Procedure Report:
CARDIAC CATHETERIZATION REPORT
Date of Procedure: 12/29/2023
Referring: Papo Lam M.D.
INDICATION: Unstable angina.
PROCEDURE:
1. Left catheterization
2. Coronary angiography.
3. Successful PCI of the distal RCA.
ACCESS:
6 [place] right radial artery.
CATHETERS:
1. 5 Norwegian JR4.
2. 5 Norwegian JL 3.5.
3. 6 Norwegian JR4 guide.
HEMODYNAMIC DATA
Weight (kg): 96.6
AO (s/d/x, mmHg): 135/67/95
LV (s/x mmHg): 136/22
LEFT VENTRICULOGRAPHY: Not performed.
CORONARY ANGIOGRAPHY
Dominance: Right.
Left Main: Normal size, bifurcating vessel. There is no coronary artery disease.
LAD: Normal size vessel giving rise to 1 significant diagonal. There is a 30% lesion in the distal LAD.
Ramus: Congenitally absent.
Circumflex: Normal size, nondominant vessel giving rise to 2 obtuse marginals. There are minor luminal irregularities throughout.
RCA: Large size, dominant vessel with a significant posterolateral branch. There is a 40�50% lesion in the mid vessel. There is an angiographically 80% lesion in the distal vessel, immediately proximal to the bifurcation of the RPDA and RPL.
INTERVENTION(S)
1. Successful PCI of the 80% distal RCA lesion (Xience Skypoint 3.0 x 23 KATE) with reduction in stenosis to 0%, maintaining ROSA-3 flow.
Narrative:
The decision was made to proceed with percutaneous coronary intervention. The diagnostic catheter was removed over a wire and a 6Fr JR4 guiding catheter was advanced to the aortic root and seated in the right coronary artery. Additional heparin was
given and a Power Turn Flex wire was advanced into the distal RPDA. The 80% distal RCA lesion was predilated with a 2.0 x 12 semi-compliant balloon to 12 chandu. Of note, there was ROSA-3 flow in the vessel prior to angioplasty. When the
semicompliant balloon was advanced into the lesion, the patient developed ROSA I flow in the distal vessel, demonstrating that the angiographically 80% distal RCA lesion was more severe than initially appreciated. The semi-compliant balloon was
removed and a Xience Skypoint 3.0 x 23 drug-eluting stent was advanced. Unfortunately, the stent would not advance beyond the arteries tortuosity. The stent was removed and a 6 Norwegian guide liner was advanced over the 2.0 x 12 semicompliant
balloon. With good GuideLiner support, the stent was readvanced, this time passing into the distal RCA with relative ease. Meticulous care was taken while positioning the stent, ensuring that the stent did not enter the bifurcation but that the
entire lesion was covered. The stent was deployed at 12 atmospheres. The stent balloon was removed. Angiography was performed in orthogonal views, confirming good stent expansion and an excellent angiographic result. The power turn flex wire was
pulled back from the RPDA and redirected into the RPL, demonstrating that both vessels were percutaneously accessible. The coronary wire was withdrawn and the guide was disengaged from the artery. The catheter was removed over a standard J-wire.
Closure Device: Vascular band.
Radiation (mGy): 837.80
DAP (cm2.Gy): 81.4124
Fluoroscopy time (minutes): 7.8
Sedation time (minutes): 41
CONCLUSIONS
1. Right dominant circulation with a 30% lesion in the distal LAD, a 40-50% lesion in the mid RCA and an occlusive, 80% lesion in the distal RCA status post successful PCI (Xience Skypoint 3.0 x 23 KATE) with reduction in stenosis to 0%, maintaining
ROSA-3 flow.
2. Moderately elevated filling pressures (LVEDP = 22 mmHg at 96.6 kg).
RECOMMENDATIONS:
1. Expectant management after cardiac catheterization via right radial approach.
2. Limited weight bearing on the right wrist for one week.
3. Antiplatelet therapy with clopidogrel and low-dose rivaroxaban for at least 12 months, after which time we can consider discontinuation of clopidogrel.
4. Increase furosemide to 40 mg daily given moderate elevation in filling pressures.
5. Guideline directed medical therapy as hemodynamics will tolerate.
6. Aggressive risk factor reduction for secondary prevention.
7. Referral to cardiac rehab.
Copy to: Papo Lam M.D., Scott Segura M.D., Yordy Triplett M.D.
Rafita Brown DO, FACC, FACP
--- NOTE | 2023-12-29 11:37 | PTCARENOTE ---
pt transferred to IVU s/p dental lab technician. pt belongings sent to room 2242.
--- NOTE | 2023-12-29 12:28 | CM ---
Chart reviewed. Patient is independent of ADLS, lives with her son in a [address], [address] [facility], ambulates with a RW and SPC. Patient is receiving outpatient PT. Patient is interested in VN. Referral sent to [facility]. [facility] to follow
[2023-12-29 12:30] LABS: Hematocrit 35.6 % (37.0-47.0); Hemoglobin 12.1 g/dL (12.0-16.0); Mean Corpuscular Hgb 30.7 pg (27.0-31.0); Mean Corpuscular Volume 90.4 fL (81.0-99.0); Mean Platelet Volume 11.2 fL (7.4-10.4); Platelet Count 190 10^3/uL (130-400); Red Blood Cell Count 3.94 10^6/uL (4.20-5.40); Red Cell Dist. Width 13.7 % (11.5-14.5); White Blood Cell Count 6.1 10^3/uL (4.8-10.8)
[2023-12-29 12:43] LABS: ACT-LR - POC > 397 Seconds (116-155)
--- NOTE | 2023-12-29 12:51 | PTCARENOTE ---
attempted to remove air from TR band. bled immediately. 2 cc air replaced. will continue to monitor.
--- NOTE | 2023-12-29 14:51 | PTOTSP ---
Please place updated PT/OT orders when medically appropriate following cardiac cath and transfer to IVU.
--- NOTE | 2023-12-29 16:05 | W.PN.HOSP.TC ---
Today's Communication/Plan
-
Monitor on telemetry
Discussed with cardiology when to transition from IV heparin drip to p.o. anticoagulation
Assessment / Plan
Assessment / Plan
NAD, resting comfortably in bed
Scleral anicteric
Moist mucous membranes
No JVD
CTA bilateral
Normal S1-S2 no murmurs
Obese, soft nontender nondistended bowel sounds active
No peripheral pitting edema
Moves extremities spontaneously
AAOx3
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
Chronic heart failure preserved EF -stable. Echocardiogram done on December 25 shows LVEF 60 to 65%, continue Lasix
Paroxysmal atrial fibrillation -likely able to transition to p.o. Xarelto within the next 12 hours/per cardiology recommendations
Constipation -glycerin suppository, MiraLAX ordered. She uses these meds at home.
Essential hypertension -stable.
COPD without exacerbation
Hyperlipidemia
Esophageal dysmotility -had an EGD in 2018 that showed a benign-appearing esophageal stenosis, gastritis.
Permanent pacemaker
Morbid obesity due to excess calories
Full code
Anticipated Discharge: Within 24 hours
Subjective/Interval History
-
Date of Service: December 29, 2023
Seen and examined. No new complaints. No acute overnight events
Objective Data
-
Labs:
Laboratory Results
12/29/23
08:58
WBC 6.1
Hgb 12.1
Hct 35.6 L
Plt Count 190
APTT 93.1 H
Sodium 139
Potassium 4.2
Chloride 104
Carbon Dioxide 26
BUN 26 H
Creatinine 0.8
Glucose 88
Calcium 9.8
Vital Signs:
Vital Signs
Temp Pulse Resp BP Pulse Ox
97.5 F 60 16 120/65 96
12/29/23 13:00 12/29/23 13:30 12/29/23 07:24 12/29/23 12:30 12/29/23 14:18
I&O
12/28/23 12/29/23 12/30/23
06:59 06:59 06:59
Intake Total 960 / 960 1176 / 1176
Balance 960 / 960 1176 / 1176
[2023-12-29] MEDS: XARELTO 15 MG PO (17:31)
--- NOTE | 2023-12-29 19:31 | PTCARENOTE ---
Pt. received at change of shift. Pt. AOx3, no complaints of pain. R radial site checked. Site ecchymotic, pt. reports of no pain at this time. VS WNL. Continuing to monitor the pt.
[2023-12-29] MEDS: NORVASC 5 MG PO (21:46)
[2023-12-29] MEDS: HYTRIN 5 MG PO (21:47)
[2023-12-29] MEDS: LIPITOR 40 MG PO (21:47)
[2023-12-30 02:55] VITALS: BMI 38.5
[2023-12-30 03:08] VITALS: BP 146/69
[2023-12-30 03:41] LABS: Hematocrit 35.4 % (37.0-47.0); Hemoglobin 12.2 g/dL (12.0-16.0); Mean Corp Hgb Conc. 34.5 g/dL (33.0-37.0); Mean Corpuscular Hgb 31.4 pg (27.0-31.0); Mean Platelet Volume 10.4 fL (7.4-10.4); Platelet Count 174 10^3/uL (130-400); Red Blood Cell Count 3.89 10^6/uL (4.20-5.40); Red Cell Dist. Width 13.6 % (11.5-14.5); White Blood Cell Count 6.4 10^3/uL (4.8-10.8)
[2023-12-30 04:02] LABS: Blood Urea Nitrogen 22 mg/dl (7-17); Calcium 9.8 mg/dl (8.4-10.2); Carbon Dioxide 28 mmol/L (22-30); Chloride 104 mmol/L (98-107); Estimated Creatinine Clearance 44 ml/min; Glucose 90 mg/dl (70-99); Potassium 4.2 mmol/L (3.5-5.1); Sodium 140 mmol/L (135-145); eGFR 55.21
[2023-12-30 06:00] VITALS: BMI 38.5
[2023-12-30 07:09] VITALS: BP 134/60
[2023-12-30] MEDS: SPIRIVA RESPIMAT 2.5 MCG 2 PUFF INH (07:22)
[2023-12-30] MEDS: SYMBICORT 80/4.5 MCG INHALER 2 PUFF INH (07:22)
--- NOTE | 2023-12-30 07:44 | W.PN.CD ---
Today's Communication / Plan
-
Increase furosemide to 40 mg daily.
BMP in one week to monitor renal function/potassium levels.
Stable for outpatient cardiology follow up.
Impression / Plan
-
Impression/Plan: 83 y/o femal with PAF/second degree AV block s/p PPM, HTN, HFpEF and COPD admitted with suspicious chest pain.
#Unstable Angina/CAD
-Acute.
-Echocardiogram this admission revealed an LVEF of 60-65%, wall motion consistent with conduction abnormality, severe biatrial enlargement, and moderate tricuspid regurgitation (PAP 40-45 mmHg).
-Cardiac catheterization revealed moderate LAD disease (40-50%) and an occlusive 80% dRCA lesion, now s/p successful PCI (Xience Skypoint 3.0 x 23 KATE) with reduction in stenosis to 0%, maintaining ROSA III flow.
-Loaded with clopidogrel in the director of labor and delivery. Transition to clopidogrel 75 mg daily and rivaroxaban 15 mg daily for 12 months, after which time we can consider d/c of clopidogrel.
-Atorvastatin increased to 40 mg daily for secondary prevention.
-Continue amlodipine, metoprolol, losartan.
#Paroxysmal atrial fibrillation
-Currently in NSR.
-[place] was ~30% on her last outpatient device check on dofetilide and metoprolol (propanolol PRN).
-[id number]: Score at least 5 (Heart failure, HTN, age 75 or more, female gender).
-Therapeutic anticoagulation with clopidogrel and rivaroxaban 15 mg daily.
#HFpEF
-Chronic.
-LVEDP = 22 mmHg at catheterization.
-Increase furosemide to 40 mg daily.
-BMP in one week to monitor renal function, potassium levels.
#Hypertension
-Chronic, stable.
-Continue losartan, metoprolol.
#HLD
-Chronic.
-Total cholesterol = 163, LDL = 86, HDL = 58, Triglycerides = 97.
-Atorvastatin increased to 40 mg daily.
-Goal LDL < 55.
-Fasting lipid panel in three months.
#Second-degree atrioventricular block--stable s/p PPM
#Dysphagia with esophageal dysmotility and delayed emptying, follows with GI--patient states that her typical symptoms are different than what she is feeling currently.
#COPD--mild shortness of breath.
#Dispo
-IVU status.
-Full code.
-Stable for outpatient cardiology follow up.
Subjective/Interval History:
Cath yesterday showed occlusive, 80% dRCA lesion with moderate disease in the LAD. Successful PCI of dRCA.
Afternoon/Evening BP's running high.
She feels well.
DATA:
TTE, 12/26/2023:
CONCLUSIONS
LV ejection fraction is 60-65%. Wall motion is consistent with conduction
abnormality.
Normal right ventricular size and function. Pacer wire seen in right ventricle.
Severely dilated left atrium. Severely dilated right atrium.
Aortic sclerosis without stenosis.
Moderate tricuspid regurgitation. Estimated pulmonary artery pressure of 40-45
mmHg.
No significant change since the prior study of 05/29/22.
Cardiac catheterization/PCI, 12/29/2023:
CONCLUSIONS
1. Right dominant circulation with a 30% lesion in the distal LAD, a 40-50% lesion in the mid RCA and an occlusive, 80% lesion in the distal RCA status post successful PCI (Xience Skypoint 3.0 x 23 KATE) with reduction in stenosis to 0%, maintaining
ROSA-3 flow.
2. Moderately elevated filling pressures (LVEDP = 22 mmHg at 96.6 kg).
Physical Exam
Vital Signs/Labs
Vital Signs
Temp Pulse Resp BP Pulse Ox
36.5 C 64 16 146/69 94
12/30/23 07:13 12/30/23 07:25 12/30/23 07:25 12/30/23 03:08 12/30/23 07:25
12/28/23 12/29/23 12/30/23
11:59 11:59 11:59
Actual Weight 97.097 kg 96.757 kg 95.4 kg
12/30/23 03:04
12/30/23 03:04
APTT 93.1 Sec (23.4-35.0) H 12/29/23 08:58
Magnesium 2.1 mg/dl (1.6-2.3) 12/28/23 06:54
Triglycerides 97 mg/dl (10-149) 12/27/23 04:40
LDL Cholesterol, Calc 86 mg/dl 12/27/23 04:40
VLDL Cholesterol, Calc 19 mg/dl (0-30) 12/27/23 04:40
HDL Cholesterol 58 mg/dl 12/27/23 04:40
Physical Exam
Constitutional: No acute distress and Comfortable
EENT: Anicteric and Moist mucous membranes
Cardiovascular: Rhythm & rate is regular, Pedal edema is absent, JVD pressure is normal, S1S2 is normal and Murmur/rub/gallop absent
Respiratory: Respiratory effort normal, Lungs clear to auscul., Wheeze Absent, Crackles Absent and Rhonchi Absent
GI: Soft, Distention absent, Flat, Non tender and Normal bowel sounds
Neuro/Psych: AO x 3
Other: Cath Site (Right radial access site is C/D/I.)
Data Reviewed
-
Date of Service: December 30, 2023
Medical Decision Making: Reviewed Test Results, Independent Historian Assessment and Test Interpretation
EKG: Tracing Personally Visualized and interpreted and Report Reviewed by me
Echo: Report Reviewed by me
X-Ray/CT/US/MRI/NUC/PET: Image Personally Visualized and interpreted and Report Reviewed by me
Medical Tests (PFT, Pathology etc): Image Personally Visualized and interpreted and Report Reviewed by me
Labs: Labs Reviewed by me
Old Records: Reviewed
[2023-12-30] MEDS: MIRALAX 17 GRAMS PO (08:53)
[2023-12-30] MEDS: PLAVIX 75 MG PO (08:54)
[2023-12-30] MEDS: LASIX 40 MG PO (08:54)
[2023-12-30] MEDS: TIKOSYN 250 MCG PO (08:54)
[2023-12-30] MEDS: WELLBUTRIN XL (24 hour extended release) 150 MG PO (08:54)
[2023-12-30] MEDS: COZAAR 50 MG PO (08:54)
[2023-12-30] MEDS: TOPROL XL 50 MG PO (08:57)
--- NOTE | 2023-12-30 09:24 | PTOTSP ---
Requesting new OT eval orders due to change to higher level of care.
--- NOTE | 2023-12-30 09:34 | PTCARENOTE ---
received patient this am, right radial ecchymotic, good pulse, no hematoma. monitor shows Apaced, VSS. patient wants to go home today.
--- NOTE | 2023-12-30 10:23 | CM ---
Chart reviewed. Patient likely with discharge today. Patient is independent of ADLS, lives with her son in a 1 S[address],, 2 ZEB, ambulates with a RW and SPC. Plan is for the patient to [facility].
[2023-12-30] MEDS: DITROPAN 5 MG PO (10:47)
[2023-12-30 11:06] VITALS: BP 148/75
[2023-12-30 11:14] VITALS: BP 148/75; PULSE 66
[2023-12-30 11:29] VITALS: BP 129/72
--- NOTE | 2023-12-30 11:51 | W.PN.HOSP.TC ---
Today's Communication/Plan
-
Discharge home
Plavix and Xarelto 15 mg
Lipitor 40 mg at at bedtime
Losartan 50 mg twice daily
Avoid aspirin
Assessment / Plan
Assessment / Plan
NAD, resting comfortably in bed
Scleral anicteric
Moist mucous membranes
No JVD
CTA bilateral
Normal S1-S2 no murmurs
Obese, soft nontender nondistended bowel sounds active
No peripheral pitting edema
Moves extremities spontaneously
AAOx3
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
Chronic heart failure preserved EF -stable. Echocardiogram done on December 25 shows LVEF 60 to 65%, continue Lasix
Paroxysmal atrial fibrillation -likely able to transition to p.o. Xarelto within the next 12 hours/per cardiology recommendations
Constipation -glycerin suppository, MiraLAX ordered. She uses these meds at home.
Essential hypertension -stable.
COPD without exacerbation
Hyperlipidemia
Esophageal dysmotility -had an EGD in 2018 that showed a benign-appearing esophageal stenosis, gastritis.
Permanent pacemaker
Morbid obesity due to excess calories
Full code
Anticipated Discharge: Today
Subjective/Interval History
-
Date of Service: December 30, 2023
Seen and examined. No new complaints. No acute overnight events.
Just finished working with physical therapy. Reports that she was able to ambulate around the medical french.
States that she has someone to come pick her up
Is eager to get back home.
Objective Data
-
Labs:
Laboratory Results
12/30/23
03:04
WBC 6.4
Hgb 12.2
Hct 35.4 L
Plt Count 174
Sodium 140
Potassium 4.2
Chloride 104
Carbon Dioxide 28
BUN 22 H
Creatinine 1.0
Glucose 90
Calcium 9.8
Vital Signs:
Vital Signs
Temp Pulse Resp BP Pulse Ox
97.7 F 77 20 134/60 98
12/30/23 07:13 12/30/23 09:30 12/30/23 11:30 12/30/23 08:57 12/30/23 11:30
I&O
12/29/23 12/30/23 12/31/23
06:59 06:59 06:59
Intake Total 1176 / 1176 150 / 150
Balance 1176 / 1176 150 / 150
--- NOTE | 2023-12-30 11:51 | W.DCSUMMARY ---
Discharge Summary
Discharge Data
Date of Admission: 12/26/23
Date of Discharge: 12/30/23
-
Pending Results: No
Hospital Course
83 female history of heart failure A-fib COPD hypertension dyslipidemia esophageal dysmotility presented with chest discomfort, concern for unstable angina as troponins were negative x 2. EKG paced rhythm. Evaluated by cardiology. Recommended 2D
echocardiogram which demonstrated EF of 60 to 65% with a estimated pulmonary artery pressure of 40-45. As chest pain was slow to improve and though there was residual shortness of breath cardiology believed that a cardiac catheterization was not
indicated. She was placed on a heparin drip started on aspirin. Left heart catheterization showed a distal RCA occlusion that was stented. Will be discharged home plavix plus Xarelto. Do not take aspirin as this can increase bleeding risk when
taken in conjunction with plavix 75mg daily and xarelto 15mg daily. Continue beta-chetna. High intensity statin was initiated per guidelines. Discontinue home use of simvastatin.
LHC
INDICATION: Unstable angina.
PROCEDURE:
1. Left catheterization
2. Coronary angiography.
3. Successful PCI of the distal RCA.
CONCLUSIONS
LV ejection fraction is 60-65%. Wall motion is consistent with conduction
abnormality.
Normal right ventricular size and function. Pacer wire seen in right ventricle.
Severely dilated left atrium. Severely dilated right atrium.
Aortic sclerosis without stenosis.
Moderate tricuspid regurgitation. Estimated pulmonary artery pressure of 40-45
mmHg.
Discharge Plan
-
Patient Disposition: Home (Routine Discharge)
Discharge Diagnosis/Procedures: Angioplasty and stent to Right Coronary artery
Heart failure, A-fib, COPD, hypertension, dyslipidemia, esophageal dysmotility
Condition: Good
Diet: As tolerated
Activity: As tolerated
Driving Restrictions: As prior to admission
Bathing Restrictions: None
Blood Work: BMP in [address] Segrua.
Other Services: Cardiac Rehab
Activity Restrictions/Additional Instructions:
Presented with chest discomfort, concern for unstable angina as troponins were negative x 2. EKG paced rhythm. Evaluated by cardiology. Recommended 2D echocardiogram which demonstrated EF of 60 to 65% with a estimated pulmonary artery pressure of
40-45. As chest pain was slow to improve and though there was residual shortness of breath cardiology believed that a cardiac catheterization was not indicated. She was placed on a heparin drip started on aspirin. Left heart catheterization
showed a distal RCA occlusion that was stented. Will be discharged home plavix plus Xarelto. Do not take aspirin as this can increase bleeding risk when taken in conjunction with plavix 75mg daily and xarelto 15mg daily. Continue beta-chetna.
High intensity statin was initiated per guidelines. Discontinue home use of simvastatin.
LHC
INDICATION: Unstable angina.
PROCEDURE:
1. Left catheterization
2. Coronary angiography.
3. Successful PCI of the distal RCA.
CONCLUSIONS
LV ejection fraction is 60-65%. Wall motion is consistent with conduction
abnormality.
Normal right ventricular size and function. Pacer wire seen in right ventricle.
Severely dilated left atrium. Severely dilated right atrium.
Aortic sclerosis without stenosis.
Moderate tricuspid regurgitation. Estimated pulmonary artery pressure of 40-45
mmHg.
Please call [facility] at [phone] to schedule your first visit when you know you will be finished with physical therapy for your shoulder
Instructions: Coronary Stenting (DC), Treatment choices for angina (chest pain)
Stand Alone Forms: DC Instructions- Cath/EP Lab
Referrals:
[facility] [Outside]
Riya Vicente NP [Specified Professional Personl] - 01/20/24 1:20 pm (Cardiology followup appointment)
Yordy Triplett MD [Family Provider] -
Additional Discharge Medication Instructions: Please note decreased dose of Xarelto to 15mg daily
Prescriptions:
New
Xarelto 15 mg Tablet
15 mg PO QPM 30 Days Qty: 30 0RF
furosemide 40 mg Tablet
40 mg PO DAILY 30 Days Qty: 30 0RF
clopidogrel 75 mg Tablet
75 mg PO DAILY 30 Days Qty: 30 0RF
losartan 50 mg Tablet
50 mg PO BID 30 Days Qty: 60 0RF
atorvastatin 40 mg tablet
40 mg PO HS 30 Days Qty: 30 0RF
Continued
oxybutynin chloride 5 MG tablet
5 mg PO DAILY
losartan 50 MG tablet
50 mg PO BID
terazosin 5 MG capsule
5 mg PO HS
ascorbic acid (vitamin C) [Vitamin C] 500 MG tablet
1,000 mg PO DAILY
cholecalciferol (vitamin D3) 1,000 UNITS tablet
1,000 units PO DAILY
Trelegy Ellipta 100-62.5-25 mcg blister with device
1 ea INHALATION R DAILY
propranolol 20 MG tablet
20 mg PO DAILYPRN PRN (Reason: palpitations/afib)
dofetilide 250 MCG capsule
250 mcg PO BID
metoprolol succinate 50 mg Tablet Extended Release 24 Hr
50 mg PO DAILY
therapeutic multivitamin Tablet
1 tab PO DAILY
amlodipine 5 mg Tablet
5 mg PO HS
acetaminophen [Tylenol Extra Strength] 500 mg Tablet
1,000 mg PO Q6HPRN PRN (Reason: mild pain)
bupropion HCl 150 mg Tablet Extended Release 24 Hr
150 mg PO DAILY
Discontinued
cetirizine 10 MG tablet
10 mg PO DAILY
simvastatin 20 MG tablet
20 mg PO HS
furosemide 20 mg tablet
20 mg PO DAILY
albuterol sulfate 90 mcg/actuation Hfa Aerosol Inhaler
2 puff INHALATION R Q6HPRN PRN (Reason: sob)
Xarelto 20 MG tablet
20 mg PO HS
Discharge Orders:
Discharge Patient (As Directed); Ordered 12/30/23
Ordered By: Dustin Vazquez
Care Plan Goals
Care Plan Goals:
Problem: Readiness for enhanced knowledge related to diagnosis and treatment plan
Goal: Understand your diagnosis and treatment plan needs, including medications if applicable.
Instructions: Know your diagnosis, underlying causes and treatment plan options, including medications if applicable. Consult with your health care team to learn about your diagnosis and treatment plan, including medications if applicable.
Discharge Date and Time
Print Language: NIGERIAN
--- NOTE | 2023-12-30 14:03 | PTCARENOTE ---
D/C instructions given to patient and family member, both verbalizes understanding. INT D/C'd, telemetry D/C'd, personal belongings packed and sent home with patient. [facility] . D/c to home via wc accompanied by staff.
== END 2023-12-30 14:07 | disposition home health service (06) | DRG 322 ==
LOC: IVU 16:25
PROVIDERS: Internal Medicine Cardiovascular Disease; Nurse Practitioner Gerontology; Physician Assistant; Registered Nurse; ADMITTING PHYSICIAN Hospitalist; ATTENDING PHYSICIAN Hospitalist; CONSULT PHYSICIAN Internal Medicine; EMERGENCY PHYSICIAN Emergency Medicine; FAMILY PHYSICIAN Family Medicine
PROC: B2111ZZ Fluoroscopy of Multiple Coronary Arteries using Low Osmolar Contrast (ICD-10-PCS; 2023-12-29)
PROC: B2151ZZ Fluoroscopy of Left Heart using Low Osmolar Contrast (ICD-10-PCS; 2023-12-29)
PROC: 4A023N7 Measurement of Cardiac Sampling and Pressure, Left Heart, Percutaneous Approach (ICD-10-PCS; 2023-12-29)
PROC: 027034Z Dilation of Coronary Artery, One Artery with Drug-eluting Intraluminal Device, Percutaneous Approach (ICD-10-PCS; 2023-12-29)
DX: I24.9 Acute ischemic heart disease, unspecified (principal); I50.32 Chronic diastolic (congestive) heart failure; I20.0 Unstable angina; I11.0 Hypertensive heart disease with heart failure; I48.91 Unspecified atrial fibrillation; J44.9 Chronic obstructive pulmonary disease, unspecified
CPT/HCPCS: 71046; 80048; 80053; 80061; 83036; 83735; 84484; 85025; 85027; 85347; 85730; 93005; 93288; 93306; 93458; 94640; 96365; 96366; 97162; 97164; 97166; 99285; C1725; C1874; C1894; C9600; Q9967

== ENCOUNTER 2023-12-31 17:19 | Emergency (ER) | payer MEDICARE, OTHER, SELFPAY ==
[2023-12-31] VITALS (7 sets, daily range): BP systolic 116–156; BP diastolic 60–75; BMI 38.3; BMI 39.0
[2023-12-31 17:57] LABS: % Basophils 0.5 % (0-2); % Eosinophils 4.1 % (0-6); % Immature Granulocytes 0.3 % (0-0.5); % Lymphocytes 21.6 % (20.5-51.1); % Neutrophils 62.5 % (42.2-75.2); Absolute Eosinophils 0.3 10^3/uL (0-0.7); Absolute Lymphocytes 1.7 10^3/uL (1.2-3.4); Absolute Monocytes 0.9 10^3/uL (0.1-0.6); Absolute Neutrophils 4.8 10^3/uL (1.4-6.5); Hematocrit 37.7 % (37.0-47.0); Hemoglobin 13.1 g/dL (12.0-16.0); Mean Corp Hgb Conc. 34.7 g/dL (33.0-37.0); Mean Corpuscular Hgb 30.8 pg (27.0-31.0); Mean Corpuscular Volume 88.7 fL (81.0-99.0); Mean Platelet Volume 10.1 fL (7.4-10.4); Nucleated Red Blood Cells % 0 %; Platelet Count 215 10^3/uL (130-400); Red Blood Cell Count 4.25 10^6/uL (4.20-5.40); Red Cell Dist. Width 13.9 % (11.5-14.5); White Blood Cell Count 7.7 10^3/uL (4.8-10.8)
[2023-12-31 18:19] LABS: ALT (SGPT) 24 U/L (0-35); AST (SGOT) 41 U/L (14-36); Albumin 4.9 g/dl (3.5-5.0); Alkaline Phosphatase 77 U/L (38-126); Blood Urea Nitrogen 37 mg/dl (7-17); Calcium 10.3 mg/dl (8.4-10.2); Carbon Dioxide 25 mmol/L (22-30); Estimated Creatinine Clearance 44 ml/min; Glucose 97 mg/dl (70-99); Total Bilirubin 0.8 mg/dl (0.2-1.3); Total Protein 7.7 g/dl (6.3-8.2); eGFR 55.21
[2023-12-31 18:20] LABS: Troponin I 0.019 ng/ml
[2023-12-31 18:31] LABS: Chloride 103 mmol/L (98-107); Potassium 4.4 mmol/L (3.5-5.1); Sodium 138 mmol/L (135-145)
--- NOTE | 2023-12-31 20:08 | ED.GENMED ---
History of Present Illness
General
Chief Complaint: Chest Pain
Source: patient
Exam Limitations: none
Time Seen by Provider: 12/31/23 19:18
History of Present Illness
History of Present Illness:
This is a 83 year old female that comes in with c/o SOB. States that she was just discharge yesterday as she had a stent place on Friday. States that this morning she started with SOB so she called the [facility] office. State that they did not
call her back until later and she sent a pacemaker transmission. Patient was told that she was going in and out of Atrial fib and Paced rhythm. States that she was told to come to the ER. States that she did have a little chest discomfort. Denies
any fever, chills, abd pain, nausea, vomiting, diarrhea, headache, dizziness, urinary burning.
Past History
Past History
ED Past Medical History: Arrthythmia (Atrial fibrillation), Asthma, COPD, HTN, Hypercholesterolemia and Other (cervical radiculopathy, back pain, Brain Aneurysm that they watch, Retinopathy, Thyroid Nodules); Negative CHF or ND
ED Past Surgical History: Cardiac (Pacemaker, Stent X 1), , Gynecological (Hysterectomy), Orthopedic (laminectomy with fusion, Trigger finger release, Carpal tunnel Right) and Other (cataracts, )
Social History
Tobacco: Non-smoker
Alcohol: Occasional
Drug: None
Personal:
Living: with family
Employment: Retired
Family History
Family History: Sudden
Review of Systems
Review of Systems
All Other Systems: ROS reviewed and negative except as documented in HPI and ROS
Constitutional: Reports no symptoms; Denies fever or chills
EENT: Reports no symptoms
Respiratory: Reports trouble breathing; Denies cough
Cardiac: Reports chest pain
ABD/GI: Reports no symptoms; Denies abdominal pain, nausea, vomiting or diarrhea
: Reports no symptoms; Denies dysuria, frequency or urgency
Musculoskeletal: Reports no symptoms
Skin: Reports no symptoms
Neurological: Reports no symptoms; Denies dizzy or headache
Psychiatric: Reports no symptoms
Phy Exam
General Physical Exam
General Presentation: well appearing and no apparent distress
General age: appears stated age
General Skin: warm and dry
General Habitus: elderly
General Mental: alert
General Hydration: dry mucous membranes
ENT Exam
ENT Exam: TM's normal, pharynx normal and neck supple
Eye Exam
Eye Exam: EOMI
Cardiovascular Exam
Cardiovascular Exam: no edema, normal peripheral pulses and irregularly irregular
Pulmonary Exam
Pulmonary Exam: lungs clear, no respiratory distress, no rales, chest non tender, no crackles, no rhonchi, no wheezing and no cough
Gastrointestinal Exam
Gastrointestinal Exam: normal bowel sounds, non tender, soft, no organomegaly, no pulsatile mass and non distended
Musculoskeletal Exam
Musculoskeletal Exam: full ROM and no edema
Skin Exam
Skin Exam: normal color, warm/dry, no rash and no petechia
Psychiatric Exam
Psychiatric Exam: normal mood/affect
Scores
Heart Score for Chest Pain Patients
STEMI patient?: No
History: Slightly or Non-Suspicious
ECG: Normal (PACED/ATRIAL FIB)
Age: >/= 65 years
Risk Factors: >/= 3 Risk Factors or History of CAD
Troponin: </= Normal Limit
Heart Score for Chest Pain Patients: 4
Heart Score Risk: 20.3% MACE over next 6 weeks
Course
Orders/Labs/Results
Orders:
Orders
12/31/23 17:20
Electrocardiogram (*1) Urgent
Reason for Study: Chest Pain
EKG- Treatment ONCE
12/31/23 17:21
CXR2 [CR Chest - 2 Views ] Urgent
Comment:
Reason For Exam: cp
12/31/23 17:52
Complete Blood Count/With Diff Urgent
Comprehensive Metabolic Panel Urgent
NT-proBNP Urgent
Comment: ADD ON
Troponin I Urgent
12/31/23 20:10
Add On- LAB Urgent
Tests Added?: Pro-BNP
0.9% Sodium Chloride 1000 ml [Nss] 1,000 ml IV BOLUS
Abnormal Lab Results
12/31/23
17:52
Absolute Monos (auto) 0.9 H 10^3/uL
(0.1-0.6)
Monocytes % 11.0 H %
(1.7-9.3)
BUN 37 H mg/dl
(7-17)
Calcium 10.3 H mg/dl
(8.4-10.2)
AST 41 H U/L
(14-36)
12/31/23 17:52
12/31/23 17:52
Dehydration. AST mildly elevated. Troponin 0.019, Pro-BNP 968
Vital Signs
Initial and Last Documented VS:
Initial Vital Signs
Temp Pulse Resp BP Pulse Ox
98.4 F 67 18 156/71 97
12/31/23 17:22 12/31/23 17:22 12/31/23 17:22 12/31/23 17:22 12/31/23 17:22
Last Documented Vital Signs
Temp Pulse Resp BP Pulse Ox
98.4 F 69 20 154/75 97
12/31/23 17:22 12/31/23 19:07 12/31/23 19:07 12/31/23 19:07 12/31/23 19:07
MDM/Problems Addressed
Differential Diagnosis Includes:
Dehydration, Atrial fib
MDM/Problems Addressed:
This is a 83 year old female that comes in with c/o SOB. States that she was just discharge yesterday. Today she started to feel SOB. Patient called the [facility] office and sent a Pacemaker transmission and she was told that she was going in and
out of atrial fib. Patient was told to come to the ER.
Will check labs. Chest X-ray, give IF Fluids and contact [facility] Systems [facility].
Spoke with Dr. Lam. Reviewed patient complaints and explained that a Pacemaker Transmission was sent to the office and patient is going from atrial fib to a paced rhythm. Chest x-ray is normal. Will place patient on the [facility] hot line
for further evaluation. Explained that she would be called tomorrow and they will get her into see the sand wheeler. They may need to adjust her Pacemaker rate and sensing. Will discharge home.
Chronic conditions affecting care: Arrhythmia
Acute Exacerbation and/or Progression of Chronic Illness: Arrhythmia
*Radiology
Radiology exam reviewed: radiology read reviewed (Chest-No acute cardiopulmonary process. )
*Pulse Oximetry
Patient hypoxic: no
*EKG
Interpreted by ED Provider?: Yes
Heart Rate: 75
Rate: normal
Rhythm: ventricular paced
*Hospital Educator Interpretation
Rate: normal
Heart Rate: 71
Rhythm: other (Paced and then atrial fib)
*Critical Care Note
Total Time (30-74mins, 75-104mins- exclusive of procedures): Not Applicable
ED Attending Note
-
Portions of this chart may have been created with voice recognition software.� Occasional wrong word or��sound alike� substitutions may have occurred due to the inherent limitations of voice recognition software.
Discharge Plan
Departure
Patient Disposition: Home (Routine Discharge)
Date of Disposition: 12/31/23
Time of Disposition: 21:17
Patient with high blood pressure during this ER visit?: Yes
Condition: Good
Covid-19: Not Applicable
Discharge Problem:
atrial fib/ paced rhythm, SOB (shortness of breath)
Instructions: Chest Pain CBC Follow Up, BLOOD PRESSURE
Prescriptions:
No Action
oxybutynin chloride 5 MG tablet
5 mg PO DAILY
losartan 50 MG tablet
50 mg PO BID
terazosin 5 MG capsule
5 mg PO HS
ascorbic acid (vitamin C) [Vitamin C] 500 MG tablet
1,000 mg PO DAILY
cholecalciferol (vitamin D3) 1,000 UNITS tablet
1,000 units PO DAILY
Trelegy Ellipta 100-62.5-25 mcg blister with device
1 ea INHALATION R DAILY
propranolol 20 MG tablet
20 mg PO DAILYPRN PRN (Reason: palpitations/afib)
dofetilide 250 MCG capsule
250 mcg PO BID
metoprolol succinate 50 mg Tablet Extended Release 24 Hr
50 mg PO DAILY
therapeutic multivitamin Tablet
1 tab PO DAILY
amlodipine 5 mg Tablet
5 mg PO HS
acetaminophen [Tylenol Extra Strength] 500 mg Tablet
1,000 mg PO Q6HPRN PRN (Reason: mild pain)
bupropion HCl 150 mg Tablet Extended Release 24 Hr
150 mg PO DAILY
Xarelto 15 mg Tablet
15 mg PO QPM 30 Days Qty: 30 0RF
furosemide 40 mg Tablet
40 mg PO DAILY 30 Days Qty: 30 0RF
clopidogrel 75 mg Tablet
75 mg PO DAILY 30 Days Qty: 30 0RF
losartan 50 mg Tablet
50 mg PO BID 30 Days Qty: 60 0RF
atorvastatin 40 mg tablet
40 mg PO HS 30 Days Qty: 30 0RF
Referrals:
Yordy Triplett MD [Family Provider] -
Activity Restrictions/Additional Instructions:
As discussed, your blood work shows that you are Dehydrated. Please increase your water intake to 8-8oz glasses daily. Your chest x-ray is normal. After speaking with the sand wheeler, you have been place on the Cardiology hot line for further
evaluation. They may need to adjust your pacemaker settings. IF YOU HAVE INCREASED SHORTNESS OF BREATH, CHEST PAIN, OR YOU HAVE ANY OTHER CONCERNS PLEASE RETURN TO THE EMERGENCY ROOM.
Interventions
Interventions:
*Risk Screen - Suicide Last Done: 12/31/23 17:22
*General Assessment Last Done: 12/31/23 19:07
*Neglect/Abuse Screening Last Done: 12/31/23 19:26
ED- Fall Risk Assessment Last Done: 12/31/23 19:07
*ED COVID-19 Vaccine History Last Done: 12/31/23 19:07
ED- Cardiac Assessment Last Done: 12/31/23 19:07
Discharge Date and Time
Print Language: TOGOLESE
[2023-12-31 20:52] LABS: NT-proBNP 968 pg/ml
[2023-12-31] MEDS: NSS 1000 IV (21:23)
== END 2023-12-31 23:00 | disposition home or self-care (01) ==
LOC: EMR 17:19
PROVIDERS: Emergency Medicine; EMERGENCY PHYSICIAN Emergency Medicine; FAMILY PHYSICIAN Family Medicine
DX: I48.91 Unspecified atrial fibrillation (principal); R06.02 Shortness of breath; R07.89 Other chest pain; I10 Essential (primary) hypertension; I67.1 Cerebral aneurysm, nonruptured; E78.00 Pure hypercholesterolemia, unspecified; I25.10 Atherosclerotic heart disease of native coronary artery without angina pectoris; J44.89 Other specified chronic obstructive pulmonary disease; M54.12 Radiculopathy, cervical region; Z98.890 Other specified postprocedural states; Z95.0 Presence of cardiac pacemaker; Z95.5 Presence of coronary angioplasty implant and graft; Z91.040 Latex allergy status
CPT/HCPCS: 99284; 96360; 71046; 80053; 83880; 84484; 85025; 93005

== ENCOUNTER 2024-01-01 19:36 | Observation (INO) | payer MEDICARE, OTHER, SELFPAY ==
[2024-01-01] VITALS (10 sets, daily range): BP systolic 115–162; BP diastolic 47–113; O2SAT 96–98; BMI 40.9; BMI 38.5
--- NOTE | 2024-01-01 15:05 | W.PN.CD ---
Today's Communication / Plan
-
Patient sent from office for admission for eval of significant WASHBURN since recent d/c with stent 12/29/23 as noted in detail. Labs and CXR today are pending. We will check echo.
Impression / Plan
-
83 y/o female (patient of Dr. Segura) with CAD s/p KATE to distal RCA 12/29/23 (unstable angina), PAF on Xarelto and Tikosyn, syncope with heart block s/p pacemaker, HFpEF, moderate TR, HTN, COPD, obesity who is here from the office (saw Dr. Lam
for urgent visit) for evaluation of significant WASHBURN. She came to the ER last night for the same reason, and no obvious etiology found. She has also reportedly been having nausea. She is referred back for admission and further evaluation. Full
consult in chart.
WASHBURN:
-can only walk a few steps without stopping. In no distress in ER, but even at rest breathing doesn't feel quite right to patient.
-check echo now r/o effusion or changes from recent
-updated labs pending, but on recent visit (last night)- trop okay, hgb okay
-CXR yesterday unremarkable, being repeated in ER
-EKG paced, stable
-per chart, she does have COPD. Not wheezing to assessment.
Nausea:
-cause unclear, w/u pending
CAD with recent stenting:
-Cath 12/29/23: Right dominant circulation with a 30% lesion in the distal LAD, a 40-50% lesion in the mid RCA and an occlusive, 80% lesion in the distal RCA status post successful PCI (Xience Sk[place] 3.0 x 23 KATE) with reduction in stenosis to
0%, maintaining ROSA-3 flow. LVEDP 22 mmHg 96.6 kg.
-on Plavix and Xarelto- continue
-checking echo as above
-continue statin
-not having chest pressure, which was her presenting symptom prior to stenting
PAF:
-currently stable on monitor,
-continue Xarelto and Tikosyn
HFpEF: chronic
-Lasix recently increased- continue
-does not appear volume overloaded to my assessment
Hypertension:
-on ARB, CCB, and BB
-monitor
Pacemaker:
-stable
-monitor on tele
Physical Exam
Vital Signs/Labs
Vital Signs
Temp Pulse Resp BP Pulse Ox
97.5 F 62 18 147/75 98
01/01/24 14:40 01/01/24 14:40 01/01/24 14:40 01/01/24 14:40 01/01/24 14:40
Physical Exam
Constitutional: No acute distress
EENT: Anicteric
Cardiovascular: Rhythm & rate is regular
Respiratory: Respiratory effort normal and Lungs clear to auscul.
Neuro/Psych: AO x 3
Other: Skin
Data Reviewed
-
Date of Service: January 01, 2024
Echo: Ordered by me
--- NOTE | 2024-01-01 15:58 | ED.GENMED ---
History of Present Illness
General
Chief Complaint: Breathing Problem
Time Seen by Provider: 01/01/24 15:14
History of Present Illness
History of Present Illness:
83-year-old female with history of atrial fibrillation on Xarelto, hypertension, CAD status post recent stent placement to RCA on 12/28 presenting to the emergency department for shortness of breath. Patient presented to the hospital on 12/25 for
chest pain, subsequently had a stent placement to the RCA without complication, discharged the following day. Reports she was feeling better, however yesterday started to feel short of breath. She came to the hospital and was evaluated in the
emergency department. She had unremarkable workup, pacemaker was interrogated, was going in and out of atrial fibrillation. In communication with cardiology, was sent home. Patient followed up in the [facility] finisher office today, reported increasing
shortness of breath with exertion and now with nausea, sent to the emergency department for reevaluation and admission with plan for echocardiogram. Patient on arrival denying any chest pain. Denies any lower extremity edema. Denies fever,
reports a mild cough. Denies additional acute medical complaint
Past History
Past History
ED Past Medical History: Arrthythmia (Atrial fibrillation), Asthma, COPD, HTN, Hypercholesterolemia and Other (cervical radiculopathy, back pain, Brain Aneurysm that they watch, Retinopathy, Thyroid Nodules); Negative CHF or NM
ED Past Surgical History: Cardiac (Pacemaker, Stent X 1), , Gynecological (Hysterectomy), Orthopedic (laminectomy with fusion, Trigger finger release, Carpal tunnel Right) and Other (cataracts, )
Social History
Tobacco: Non-smoker
Alcohol: Occasional
Drug: None
Personal:
Living: with family
Employment: Retired
Family History
Family History: Sudden
Phy Exam
Physical Exam
Physical Exam:
General: Well-appearing, no clinical signs of dehydration, nontoxic and in no acute distress
HEENT: protecting airway
Neck: appears supple
CV: Normal heart rate, regular rhythm, no evidence of cyanosis
Resp: No accessory muscle use, no increased work of breathing, lungs clear to auscultation bilaterally
Abd: Soft and non-distended, no tenderness to palpation, normal bowel sounds
Extremities: No deformities, no swelling, no erythema, pulses and sensation intact
Neuro: alert, no focal neurologic deficit
: deferred
Rectal: deferred
Psych: Normal affect
Skin: Intact
Scores
Heart Failure Risk
Heart Failure Risk Score: Not Applicable
Course
Orders/Labs/Results
Orders:
Orders
01/01/24 14:44
ECG [Electrocardiogram (*1)] Urgent
Reason for Study: Shortness of Breath
EKG- Treatment ONCE
01/01/24 14:56
Echo Follow-up Study Routine
Reason for Study: SOB, stent earlier this week
01/01/24 Dinner
Cholesterol Lowering
At Your Request: Limited Participation
Does patient need a safe tray?: No
Cholesterol Lowering: Sodium, 2 Gram
01/01/24 15:47
CR Chest - 2 Views Urgent
Comment:
Reason For Exam: SIB
01/01/24 17:30
Complete Blood Count/With Diff Urgent
Troponin I Urgent
01/01/24 18:02
Comprehensive Metabolic Panel Urgent
01/01/24 18:23
COVID-19 Antigen Urgent
Source: Nasal Swab
01/01/24 19:15
Admit/Transfer Patient As Directed
Co-Sign Provider:
Level of Care: Observation services
Assign to:: Telemetry
Physician / Group: johann ybarra
Diagnosis: acute dyspnea unclear poss pulm htn vs anxiety
Reason for Telemetry: Arrhythmia
Date to Stop Telemetry: 01/04/24
Time to Stop Telemetry: 11:00
Reason for Hospitalization: acute dyspnea unclear poss pulm htn vs anxiety
Code Status As Directed
Resuscitation Status: Full Code
01/01/24 19:[address] Non Medication Order As Directed
Physician Order: ambulate and document pulse ox on room air
Above order entered?: Yes
01/01/24 19:27
PULMONARY CONSULT Routine
Consulting Provider: Mo Kwong
Was physician already notified: Yes
Reason for consult: dyspnea on exertion unclear
01/01/24 19:30
CARDIOLOGY CONSULT Routine
Consulting Provider: Sinan Silva
Was physician already notified: Yes
Reason for consult: verduzco s/p cath 12/25
01/01/24 20:12
VTE Contraindication Routine
VTE Mechanical Device Contraindication: Medical Contraindication
Pharmocologic Contraindication: Medical Contraindication
Comment: pt on xarelto
Activity As Directed
Activity Level: As Tolerated
Intake/ Output As Directed
Frequency: Per unit guidelines
Vital Signs As Directed
Frequency: Per unit guidelines
Weight As Directed
Frequency: Daily
Pulse Ox/exercise [RESP] Routine
Quantity: 1
Pulse Ox/spot Check [RESP] Routine
Quantity: 1
Ot Eval And Treat Routine
Pt Eval And Treat Routine
Activity Level: With Assistance
01/02/24 06:00
Complete Blood Count/With Diff IN AM
Comprehensive Metabolic Panel IN AM
01/04/24 11:00
DC Protocol for Telemetry ONCE
Abnormal Lab Results
01/01/24 01/01/24
17:30 18:02
RBC 3.97 L 10^6/uL
(4.20-5.40)
Hct 35.6 L %
(37.0-47.0)
MCH 31.2 H pg
(27.0-31.0)
Absolute Monos (auto) 0.7 H 10^3/uL
(0.1-0.6)
Lymphocytes % 18.8 L %
(20.5-51.1)
Monocytes % 9.5 H %
(1.7-9.3)
BUN 37 H mg/dl
(7-17)
AST 37 H U/L
(14-36)
01/01/24 17:30
01/01/24 18:02
Vital Signs
Initial and Last Documented VS:
Initial Vital Signs
Temp Pulse Resp BP Pulse Ox
97.5 F 62 18 147/75 98
01/01/24 14:40 01/01/24 14:40 01/01/24 14:40 01/01/24 14:40 01/01/24 14:40
Last Documented Vital Signs
Temp Pulse Resp BP Pulse Ox
97.6 F 63 18 162/73 98
01/01/24 20:24 01/01/24 22:08 01/01/24 20:24 01/01/24 22:08 01/01/24 20:24
MDM/Problems Addressed
MDM/Problems Addressed:
83-year-old female with history of A-fib on Xarelto and CAD status post recent cardiac stenting presenting for dyspnea and nausea. Vital signs on arrival are normal.
On exam, patient well-appearing, resting comfortably, no acute distress or discomfort. EKG obtained on arrival, nonischemic without change from prior. In discussion with cardiology, plan for admission with cardiac consultation given persistence of
symptoms with plan for echo for rule out pericardial effusion. Will repeat laboratory analysis and chest x-ray imaging. Patient otherwise hemodynamically stable.
18:00 -delay in disposition secondary to difficult IV access. Labs unremarkable. Echo without significant abnormality. Plan for admission with cardiac consultation.
*EKG
Interpreted by ED Provider?: Yes
EKG Intrepretation Date: 01/01/24
EKG Intrepretation Time: 16:02
Interpretation: normal
Comparison EKG: no changes (12/30/23)
Heart Rate: 66
Rate: bradycardiac
Rhythm: av sequential
[place]: normal axis
Interval: normal interval
QRS Pattern: normal QRS
Ischemia: no ischemia
*Critical Care Note
Total Time (30-74mins, 75-104mins- exclusive of procedures): Not Applicable
ED Attending Note
-
Portions of this chart may have been created with voice recognition software.� Occasional wrong word or��sound alike� substitutions may have occurred due to the inherent limitations of voice recognition software.
Discharge Plan
Departure
Patient Disposition: Admit
Date of Disposition: 01/01/24
Time of Disposition: 18:38
Presentation/result/management discussed w/ accepting MD/DO: Hospitalist
Patient with high blood pressure during this ER visit?: No
Condition: Good
Discharge Problem:
Acute dyspnea
Interventions
Interventions:
*Risk Screen - Suicide Last Done: 01/01/24 14:40
*General Assessment Last Done: 01/01/24 14:40
*Neglect/Abuse Screening Last Done: 01/01/24 14:40
ED- Fall Risk Assessment Last Done: 01/01/24 19:21
*ED COVID-19 Vaccine History Last Done: 01/01/24 19:21
*Nursing Disposition Last Done: 01/01/24 20:14
ED- Cardiac Assessment Last Done: 01/01/24 19:21
ED- Pulmonary Assessment Last Done: 01/01/24 19:21
Discharge Date and Time
Discharge Date/Time: 01/01/24 20:16
[2024-01-01 17:41] LABS: % Basophils 0.6 % (0-2); % Eosinophils 3.8 % (0-6); % Immature Granulocytes 0.3 % (0-0.5); % Lymphocytes 18.8 % (20.5-51.1); % Monocytes 9.5 % (1.7-9.3); Absolute Eosinophils 0.3 10^3/uL (0-0.7); Absolute Lymphocytes 1.3 10^3/uL (1.2-3.4); Absolute Monocytes 0.7 10^3/uL (0.1-0.6); Absolute Neutrophils 4.8 10^3/uL (1.4-6.5); Hematocrit 35.6 % (37.0-47.0); Hemoglobin 12.4 g/dL (12.0-16.0); Mean Corp Hgb Conc. 34.8 g/dL (33.0-37.0); Mean Corpuscular Hgb 31.2 pg (27.0-31.0); Mean Corpuscular Volume 89.7 fL (81.0-99.0); Mean Platelet Volume 10.2 fL (7.4-10.4); Nucleated Red Blood Cells % 0 %; Platelet Count 192 10^3/uL (130-400); Red Blood Cell Count 3.97 10^6/uL (4.20-5.40); White Blood Cell Count 7.1 10^3/uL (4.8-10.8)
[2024-01-01 18:01] LABS: Troponin I 0.025 ng/ml
--- NOTE | 2024-01-01 18:20 | HPS.HSE ---
Family Physician
-
Family Physician: Yordy Triplett
Chief Complaint
-
Dyspnea on exertion, nausea independent of dyspnea
History of Present Illness
83-year-old female who states she was discharged 2 days ago was feeling fine then yesterday started developing dyspnea on exertion with walking to the bathroom or getting dressed. She said occasionally she gets short of breath when she gets anxious
but she has not felt anxious over the past several days. She also reports separate nausea independent of dyspnea. She has a esophageal dysmotility Dx in 2018 also had a recent barium swallow 3 weeks ago and has follow-up appointment with
Shana in 3 weeks
She had a recent admission 12/26/23-12/30/23 for midsternal chest pain with constant pressure. She underwent cardiac cath on 12/26/2023 showing moderately elevated filling pressures, right dominant 30% lesion in the distal LAD, 40 to 50% lesion in the
mid RCA and occlusive 80% lesion in the distal RCA status post successful PCI with Xience zan point 3.0 x 23 KATE with reduction in stenosis to 0%. She was placed on antiplatelet therapy with Plavix and Xarelto for 12 months due to have limited
weightbearing on right wrist for 1 week her furosemide was increased to 40 mg daily due to elevation in filling pressures she was also referred to cardiac rehab.
She is past medical history of obstructive CAD status post distal RCA PCI, paroxysmal A-fib, chronic CHF, COPD, sleep apnea and noncompliant with CPAP HTN, HLD, dysphagia with esophageal dysmotility and delayed emptying, anxiety, urinary retention,
history of brain aneurysm being watched, cervical radiculopathy
Medical History
Past Medical History
Past Medical History: Reports Other
Additional Past Medical History:
CAD status post distal RCA PCI 12/26/2023
HTN
HLD
paroxysmal A-fib
chronic CHF
COPD
History of sleep apnea Dx 4 to 5 years ago could not tolerate machine
dysphagia with esophageal dysmotility and delayed emptying
anxiety
urinary retention
history of brain aneurysm being watched
cervical radiculopathy
Past Surgical History: Reports Other
Additional Past Surgical History:
Cardiac cath on 12/26/2023: showing moderately elevated filling pressures, right dominant 30% lesion in the distal LAD,
40 to 50% lesion in the mid RCA and occlusive 80% lesion in the distal RCA status post successful PCI with Xience zan point 3.0 x 23 KATE
with reduction in stenosis to 0%
Appendectomy
section
Social History
Tobacco: Non-smoker (Exposure to secondhand smoke)
Alcohol: Occasional
Drug: None
Personal: Single
Living: With Family
Employment: Retired
Family History
Family History: Not pertinent
Allergies / Home Medications
Allergies reflects when Allergies were last updated in [employer].
Home Medications with original date entered in [employer]
Allergy/Medication List:
Allergies
Allergy/AdvReac Type Severity Reaction Status Date / Time
latex Allergy Redness, Verified 01/01/24 14:40
itching
Home Medications
oxybutynin chloride 5 mg tablet 5 mg PO DAILY Urinary issue 09/15/17
terazosin 5 mg capsule 5 mg PO HS Blood pressure 09/15/17
ascorbic acid (vitamin C) 500 mg tablet (Vitamin C) 1,000 mg PO DAILY Supplement 10/29/17
fluticasone fur. 100 mcg-umeclid 62.5 mcg-vilant 25 mcg inhalat.powder (Trelegy Ellipta) 1 ea inhalation R DAILY Lung/breathing issues 04/22/22
propranolol 20 mg tablet 20 mg PO DAILYPRN PRN palpitations/afib 04/22/22
dofetilide 250 mcg capsule 250 mcg PO BID Arrhythmia 05/29/22
acetaminophen 500 mg tablet (Tylenol Extra Strength) 1,000 mg PO Q6HPRN PRN mild pain 12/26/23
amlodipine 5 mg tablet 5 mg PO HS Blood Pressure 12/26/23
bupropion HCl 150 mg 24 hr tablet, extended release 150 mg PO DAILY Mental Health/Anxiety 12/26/23
metoprolol succinate 50 mg tablet,extended release 24 hr 50 mg PO DAILY Blood Pressure 12/26/23
therapeutic multivitamin 1 tab PO DAILY Supplement 12/26/23
atorvastatin 40 mg tablet 40 mg PO HS 30 days #30 tabs 12/30/23
clopidogrel 75 mg tablet 75 mg PO DAILY 30 days #30 tabs 12/30/23
furosemide 40 mg tablet 40 mg PO DAILY 30 days #30 tabs 12/30/23
losartan 50 mg tablet 50 mg PO BID 30 days #60 tabs 12/30/23
rivaroxaban 15 mg tablet (Xarelto) 15 mg PO QPM 30 days #30 tabs 12/30/23
cetirizine 10 mg tablet (Zyrtec) 10 mg PO DAILY 01/01/24
cholecalciferol (vitamin D3) 25 mcg (1,000 unit) tablet 25 mcg PO DAILY 01/01/24
Review of Systems
-
History Source: Patient and Family
A 12 point ROS was completed and negative except as noted: Yes
Constitutional: Denies Fever, Fatigue or Other
EENT: Denies Sore Throat or Runny Nose
Respiratory: Reports Cough (Nonproductive) and Trouble Breathing (WASHBURN with walking and getting dressed x 2 days)
Cardiac: Denies Chest Pain, Diaphoresis, Palpitations or Syncope
Abdomen/GI: Reports Nausea; Denies Abdominal Pain, Vomiting, Diarrhea, Constipated or Bloody Stools
: Denies Dysuria, Frequency, Flank Pain, Incontinence or Difficulty Voiding
Musculoskeletal: Denies Joint Pain or Edema
Skin: Denies Itching or Rash
Neurological: Denies Dizzy or Headache
Endocrine: Reports No Symptoms
Hematologic/Lymphatic: Reports No Symptoms
Psych: Reports Calm
Physical Exam
Vital Signs
Vital Signs
Temp Pulse Resp BP Pulse Ox
97.5 F 63 12 115/55 96
01/01/24 14:40 01/01/24 18:15 01/01/24 18:15 01/01/24 18:00 01/01/24 18:15
Physical Exam
General: Comfortable and Conversant; No Fever or Chills
HEENT: NormoCephalic, Anicteric, Moist mucous membranes, PERRLA, [place] Conjunctivae and No Ptosis
Respiratory: Clear; No Wheezes, Rales or Rhonchi
Cardiac: S1/S2 and Regular Rhythm; No Murmur, Rub, Gallop or Peripheral Edema
Breast: Deferred by me
GI: Soft, Non Tender, Non Distended, Normal Bowel Sounds and No Hepatosplenomegaly
Rectal: Deferred by Provider
Genito-urinary: Deferred by me
Musculoskeletal: No Clubbing, No Cyanosis and No Edema
Skin: Warm and Dry; No Rash
Neuro: AO x 3, No Motor Deficits and Nonfocal/grossly intact; No Slurred Speech, Facial Droop or Tremors
Psych: Calm
Laboratory Results
-
01/01/24 17:30
Laboratory Results
Total Bilirubin Cancelled 01/01/24 17:30
AST Cancelled 01/01/24 17:30
ALT Cancelled 01/01/24 17:30
Alkaline Phosphatase Cancelled 01/01/24 17:30
Troponin I 0.025 ng/ml 01/01/24 17:30
Impression/Plan
-
Impression/plan:
Observation telemetry
#Acute dyspnea unclear etiology concern for Pulm Htn/vs Anxiety
# History of COPD-no acute exacerbation
Patient is status post distal RCA PCI 12/26/2023
96 to 100% RA
-Continue-Albuterol, Trelegy
-Consult CBC cardiology
-Consult Pulmonary
-WALKING PULSE OX NOTE PER NURSE
The patients pulse ox remained 96-98 % on room air when walking.
2D echo 01/01/2024: EF 55 to 60%, normal LVS LVSF no wall abnormalities normal pericardium without effusion
Moderate tricuspid regurgitation. Estimated pulmonary artery pressure of 40-45 mmhg
#Nausea likely secondary to history of esophageal dysmotility
esoph xray november 2023: Dysmotility of the esophagus with tertiary contractions and delayed emptying.
EGD 2017 showed gastritis
Barium swallow October 2017 high-grade stricture just above the gastroesophageal junction. This may be benign or malignant. Endoscopy should be considered for further evaluation.
There was an episode of aspiration. This was followed by vigorous coughing.
-IV Phenergan as would avoid prolonging QTc agents due to multiple medications
-Patient reports eats small meals chops up her food
#Obstructive CAD
#Status post distal RCA PCI 12/26/2023
-Continue Plavix and Xarelto, high-dose statin Lipitor
Cardiac cath on 12/26/2023: showing moderately elevated filling pressures, right dominant 30% lesion in the distal LAD,
40 to 50% lesion in the mid RCA and occlusive 80% lesion in the distal RCA status post successful PCI with Xience zan point 3.0 x 23 KATE
with reduction in stenosis to 0%
#Paroxysmal A-fib
-Continue Xarelto, continue metoprolol succinate 50 mg daily, Tikosyn 250 mcg p.o. twice daily
-Continue propranolol as needed
#Hx permanent pacemaker
#Chronic heart failure preserved EF
Weight 94 kg <95 kg on 12/30/2023
I/O, daily weights
Continue Lasix 40 mg p.o. daily
2D echo 01/01/2024: EF 55 to 60%, normal LVS LVSF no wall abnormalities normal pericardium without effusion
2D echo 12/26/2023 EF 60 to 65% Moderate tricuspid regurgitation. Estimated pulmonary artery pressure of 40-45 mmhg
# Essential hypertension
-Blood pressure stable in ER 119/47
-Norvasc, losartan, terazosin continued with hold parameters
#history of brain aneurysm being watched
#Cervical radiculopathy hx
# Anxiety
-Continue bupropion
# Urinary retention
-Oxybutynin continued
# Hyperlipidemia
-Statin continued
#Morbid obesity due to excess calorie consumption
Weight loss recommended
Affects all aspects of care
# DVT proph
-Continue [employer] Xarelto
Full code
[2024-01-01 18:23] LABS: ALT (SGPT) 25 U/L (0-35); AST (SGOT) 37 U/L (14-36); Albumin 4.2 g/dl (3.5-5.0); Alkaline Phosphatase 69 U/L (38-126); Blood Urea Nitrogen 37 mg/dl (7-17); Calcium 9.5 mg/dl (8.4-10.2); Carbon Dioxide 24 mmol/L (22-30); Chloride 105 mmol/L (98-107); Glucose 90 mg/dl (70-99); Potassium 4.1 mmol/L (3.5-5.1); Sodium 138 mmol/L (135-145); Total Bilirubin 0.8 mg/dl (0.2-1.3); Total Protein 6.8 g/dl (6.3-8.2); eGFR > 60.00
[2024-01-01 18:52] LABS: COVID-19 Antigen Negative (Negative)
--- NOTE | 2024-01-01 19:24 | W.PN.UPDATE ---
Update Note
Progress Note Update
Patient seen & evaluated with NORAH.
This is an 83-year-old was past medical history of Afib s/p ppm on AC with Xarelto. CAD who recently had status post PCI with stents to RCA on 12/28 for unstable angina now presenting to the emergency department with dyspnea on exertion for the last
2 days. Patient reported feeling well at time of discharge and ambulating without any difficulties. Upon arriving home she was doing well at home well until yesterday morning when she started having dyspnea on exertion. She reports dyspnea with
walking about 10 steps. She feels that she cannot catch her breath. She does not have any chest pain palpitations lightheadedness or dizziness. She denies any cough fevers or chills. Patient reports onset of nausea at around the same time
especially after she had a meal consisting of a smoothie. The nausea is not associated with the dyspnea on exertion and is not associated with any diaphoresis. She specifically denies any chest pain at rest or otherwise. Denies any prior
episodes. She was seen in ED yesterday as well as by cardiology and w/u then was negative without ischemia, CHF, wall motion abnormalities or evidence of pericardial disease. She continued to complain of symptoms today and was sent to ED by
cardiology. She is now on aspirin, plavix and Xarelto with intensification of statin. BP is stable.
In ED she was afebrile, with oxygen sat of 96% at rest. ECG with a paced rhythm at 66. Xray is clear. Hgb is stable at 12.4. Chemistries completely normal. Trop 0.025. The EF on echo was 55-60%.
On my evaluation, she was well appearing at rest and in no acute distress. Lungs clear without wheezing. Cardiac exam without rubs or gallops and no JVD or peripheral edema noted.
Dyspnea on Exertion - She is s/p RCA stent with normal wall motion, EF on echo and no ischemia on ECG and with normal trop. No diaphoresis or associated nausea. While the WASHBURN could be angina equivalalent, anxiety and pulmnary or vascular etiology
could be at play.
- admit to telemetry
- cards consult for possible stress testing
- ambulating saturation test, if positive will obtain CT PE and pulmonary consult.
- She does have untreated sleep apnea and mild COPD and is at risk for pulmonary HTN, however PH <=50 mmHg on prior echo and no�other suggestive findings of PH on TTE.
Nausea - History of esophageal dysmotility pending GI follow up. Denies heartburn, abdominal pain, melena. No vomiting.
- likely from esophageal disease. Trial of phenargan and re-evaluate
CAD
- continue aspirin, statin, plavix
AFIB
- continue Xarelto
See PA note for rest of plan
--- NOTE | 2024-01-01 19:54 | EDRN ---
The patients pulse ox remained 96-98 % on room air when walking.
--- NOTE | 2024-01-01 20:24 | PTCARENOTE ---
Pt arrived onto floor @2023. Pt AAOx3 and able to walk into room without assistance. Pt with no complaints of pain at this time. Vital signs are stable, w/ pulse ox -- 98% on room air. Pt oriented to room and call miller; will continue to monitor
[2024-01-01] MEDS: LIPITOR 40 MG PO (22:07)
[2024-01-01] MEDS: TIKOSYN 250 MCG PO (22:07)
[2024-01-01] MEDS: HYTRIN 5 MG PO (22:07)
[2024-01-01] MEDS: NORVASC 5 MG PO (22:07)
[2024-01-01] MEDS: COZAAR 50 MG PO (22:08)
[2024-01-01] MEDS: XARELTO 15 MG PO (22:10)
[2024-01-02] VITALS (8 sets, daily range): BP systolic 117–162; BP diastolic 49–90; PULSE 64–68; O2SAT 96–97; BMI 38.1
[2024-01-02] MEDS: SPIRIVA RESPIMAT 2.5 MCG 2 PUFF INH (08:01)
[2024-01-02] MEDS: SYMBICORT 80/4.5 MCG INHALER 2 PUFF INH ×2 (08:02→19:52)
[2024-01-02] MEDS: WELLBUTRIN XL (24 hour extended release) 150 MG PO (08:25)
[2024-01-02] MEDS: TIKOSYN 250 MCG PO ×2 (08:25→20:55)
[2024-01-02] MEDS: TOPROL XL 50 MG PO (08:26)
[2024-01-02] MEDS: PLAVIX 75 MG PO (08:26)
[2024-01-02] MEDS: VITAMIN C 1000 MG PO (08:26)
[2024-01-02] MEDS: COZAAR 50 MG PO ×2 (08:27→20:56)
[2024-01-02] MEDS: VITAMIN D3 (cholecalciferol) 25 MCG PO (08:27)
[2024-01-02] MEDS: DITROPAN 5 MG PO (08:27)
[2024-01-02] MEDS: ZYRTEC 10 MG PO (08:27)
[2024-01-02] MEDS: THERAGRAN 1 TABLET PO (08:27)
[2024-01-02 08:28] LABS: Glucose - Point of Care 82 mg/dl (70-99)
--- NOTE | 2024-01-02 08:46 | CON.PUL ---
Consultation
Consultation Request
Date/Time Consultation Requested: 01/02/24-8 am
Date/Time Consultation Performed: 01/02/24- 830 am
Requesting Provider: hospitalist
Performing Provider: dr brunson
Reason for Consultation: sob
Medical History
-
Chief Complaint: sob
History of Present Illness:
83 you female who saw Dr Gandhi in past for JON/ CPAP intol also carries dx of COPD (nonsmoker with 2nd hand exp, ?PFT) managed by primary on Trelegy recently discharged and returns with inc SOB - pulm consulted for SOB on 01/02/24. She dev sob
yesterday walking 12 feet. Better now and denies SOB at rest, cp, chest tightness, pleurisy, pnd, gerd, abd pain, mucous, hemoptsis, or leg swelling.
Past Medical History
Past Medical History: None (CAD status post distal RCA PCI 12/26/2023 HTN HLD paroxysmal A-fib chronic CHF COPD History of sleep apnea Dx 4 to 5 years ago could not tolerate machine dysphagia with esophageal dysmotility and delayed emptying anxiety
urinary retention history of brain aneurysm being watched cervical radiculop)
Social History
Tobacco: Non-smoker (years of second hand smoke)
Alcohol: None
Drug: None
Personal: Single
Living: With Family
Occupational Exposures: worked for the [employer] - no obv asbestosis exp
Environmental Exposures: no TB exp
Family History
Family History: Reviewed & Not Pertinent
Allergies / Home Medications
Allergies
Allergy/AdvReac Type Severity Reaction Status Date / Time
latex Allergy Redness, Verified 01/01/24 14:40
itching
Home Medications
�Medication �Instructions �Recorded �Confirmed �Last Taken �Type
oxybutynin chloride 5 mg tablet 5 mg PO DAILY Urinary issue 09/15/17 01/01/24 01/01/24 History
terazosin 5 mg capsule 5 mg PO HS Blood pressure 09/15/17 01/01/24 12/31/23 History
ascorbic acid (vitamin C) 500 mg 1,000 mg PO DAILY Supplement 10/29/17 01/01/24 01/01/24 History
tablet (Vitamin C)
fluticasone fur. 100 mcg-umeclid 1 ea inhalation R DAILY 04/22/22 01/01/24 01/01/24 History
62.5 mcg-vilant 25 mcg Lung/breathing issues
inhalat.powder (Trelegy Ellipta)
propranolol 20 mg tablet 20 mg PO DAILYPRN PRN 04/22/22 01/01/24 05/10/22 11:00 History
palpitations/afib
dofetilide 250 mcg capsule 250 mcg PO BID Arrhythmia 05/29/22 01/01/24 01/01/24 History
acetaminophen 500 mg tablet 1,000 mg PO Q6HPRN PRN mild pain 12/26/23 01/01/24 12/26/23 History
(Tylenol Extra Strength)
amlodipine 5 mg tablet 5 mg PO HS Blood Pressure 12/26/23 01/01/24 01/01/24 History
bupropion HCl 150 mg 24 hr tablet, 150 mg PO DAILY Mental 12/26/23 01/01/24 01/01/24 History
extended release Health/Anxiety
metoprolol succinate 50 mg 50 mg PO DAILY Blood Pressure 12/26/23 01/01/24 01/01/24 History
tablet,extended release 24 hr
therapeutic multivitamin 1 tab PO DAILY Supplement 12/26/23 01/01/24 01/01/24 History
atorvastatin 40 mg tablet 40 mg PO HS 30 days #30 tabs 12/30/23 01/01/24 12/31/23 Rx
clopidogrel 75 mg tablet 75 mg PO DAILY 30 days #30 tabs 12/30/23 01/01/24 01/01/24 Rx
furosemide 40 mg tablet 40 mg PO DAILY 30 days #30 tabs 12/30/23 01/01/24 01/01/24 Rx
losartan 50 mg tablet 50 mg PO BID 30 days #60 tabs 12/30/23 01/01/24 01/01/24 Rx
rivaroxaban 15 mg tablet (Xarelto) 15 mg PO QPM 30 days #30 tabs 12/30/23 01/01/24 12/31/23 Rx
cetirizine 10 mg tablet (Zyrtec) 10 mg PO DAILY 01/01/24 01/01/24 01/01/24 History
cholecalciferol (vitamin D3) 25 25 mcg PO DAILY 01/01/24 01/01/24 01/01/24 History
mcg (1,000 unit) tablet
Review of Systems
-
Unable to Obtain full review of systems at this time due to: Other (per HPI)
Vitals / Labs / Diagnostic Testing
Vital Signs
Temp Pulse Resp BP Pulse Ox
97.8 F 64 16 124/56 93
01/02/24 07:00 01/02/24 08:26 01/02/24 08:10 01/02/24 08:26 01/02/24 08:10
Diagnostic Testing:
Physical Exam
-
HEENT: Normocephalic and Anicteric
Cardiovascular: Regular Rhythm
Respiratory: Clear (diminished), Wheeze (n), Rales (n), Rhonchi, Non-Labored Respirations, Accessory Resp Muscle Use (n) and Other (n)
GI: Soft and Non Distended
Neurology: Awake, Alert and No Motor Deficits
Skin: Warm and Good Color
General: Respiratory Distress (n), Comfortable and Pain (n)
Assessment
-
83 you female who saw Dr Gandhi in past for JON/ CPAP intol also carries dx of COPD (nonsmoker with 2nd hand exp, ?PFT) managed by primary on Trelegy recently discharged and returns with inc SOB - pulm consulted for SOB on 01/02/24.
SOB
COPD without sig exacerbation
Nausea
Conditions present prior to admissnion:
Recent DH 12/30/23- PCI to distal RCA
CAD status post distal RCA PCI 12/26/2023
HTN
HLD
paroxysmal A-fib
chronic CHF COPD
History of sleep apnea Dx 4 to 5 years ago could not tolerate machine
dysphagia with esophageal dysmotility and delayed emptying
anxiety
urinary retention
history of brain aneurysm being watched
cervical radiculopathy
Plan
Etiology of WASHBURN unclear - VTE disease unlikely on chronic Xarelto, chest clear without evidence for wheezing and no clear cardiac causes
O2 as needed
Nebs if needed - not bronchospastic
Trelegy or equivalent while here
No indication for steroids
No indication for ABX
Cardiac eval
Echo noted and summarized below
Check rest and exercise oximety
Check CT chest with PE if no other clear explanations
History of sleep apnea- mild and cpap intol - saw Dr Gandhi
OP pulm follow up - PFT's etc - on Trelegy and Alb as needed
Data
CXR - 01/01/24- NAD
CT angio 05/29/22-There is no pulmonary embolismThere is no aortic dissectionThere is minimal 3-4 mm pericardial effusionThere is atherosclerosisThere is small hiatal herniaThere is hepatomegaly
Cath 12/29/23-1. Right dominant circulation with a 30% lesion in the distal LAD, a 40-50% lesion in the mid RCA and an occlusive, 80% lesion in the distal RCA status post successful PCI (Xience Skypoint 3.0 x 23 KATE) with reduction in stenosis to
0%, maintaining ROSA-3 flow. 2. Moderately elevated filling pressures (LVEDP = 22 mmHg at 96.6 kg).
Echo 01/01/24 - EF 55%, no effusion
PSG 01/2019 - SE 45%, AHI 4.9, stefano 82%, 7% time spent less than 90%, PLM index 15
Data Reviewed
-
EKG: Report reviewed by me
Radiology: Image personally visualized and interpreted and Report reviewed by me
CT Scan: Report reviewed by me
Medical Tests (Nuc Med, Echo etc): Report reviewed by me
Labs: Labs reviewed by me
Old Records: Reviewed
Total Time Spent with Patient (in minutes): 55
--- NOTE | 2024-01-02 09:02 | W.PN.CD ---
Addendum entered and electronically signed by Sinan Silva MD 01/02/24 11:54:
83 yo female with recent diagnosis of CAD and RCA stenting 12/29/23, paroxysmal A fib on xarelto, s/p PPM, chronic HFPEF, COPD is admitted with SOB. No chest pain/pressure. Exam with RRR, no murmurs, no edema. Cr, Hgb, TnI normal.
Follow up echo showed normal LVEF, no pericardial effusion. I reviewed cath films with interventional cardiology: no other targets for PCI identified. She does not appear to be in acute HF. I do not see a cardiac etiology for her SOB at this time.
Awaiting pulmonology evaluation as well.
Original Note:
Today's Communication / Plan
-
Ambulate
Await morning labs
Impression / Plan
-
BACKGROUND: 83F with CAD s/p KATE to distal RCA 12/29/23 (unstable angina), paroxysmal atrial fibrillation (on Xarelto and Tikosyn), syncope with heart block s/p pacemaker, HFpEF, moderate TR, HTN, COPD, obesity who is here from the office (saw
Genaro for urgent visit) for evaluation of significant WASHBURN. She came to the ER last night for the same reason, and no obvious etiology found. She has also reportedly been having nausea. She is referred back for admission and further evaluation.
Full consult in chart.
Plant Controller: Dr. Segura
WASHBURN:
-May have some improvement but she has not ambulated today
-No pericardial effusion, COVID negative, and CXR without acute process
-H/H stable
-LVEDP 22 mmHg 96.6 kg (12/29/2023)
Nausea, per primary
CAD with PCI 12/29/23:
-Cath 12/29/23: Right dominant circulation with a 30% lesion in the distal LAD, a 40-50% lesion in the mid RCA and an occlusive, 80% lesion in the distal RCA status post successful PCI
-on Plavix and Xarelto, continue
-Anginal complaint was chest pressure prior to PCI, resovled
Paroxysmal atrial fibrillation
-Currently in NSR.
-[place] was ~30% on her last outpatient device check on dofetilide and metoprolol (propanolol PRN).
-[id number]: Score at least 5 (Heart failure, HTN, age 75 or more, female gender), on Xarelto
HFpEF: chronic
-Lasix recently increased, continue
-does not appear volume overloaded to my assessment
Hypertension, stable on ARB, CCB, and BB, continue
Pacemaker, stable
SUBJECTIVE:
Believes SOB is improving.
Physical Exam
Vital Signs/Labs
Vital Signs
Temp Pulse Resp BP Pulse Ox
97.8 F 64 16 124/56 93
01/02/24 07:00 01/02/24 08:26 01/02/24 08:10 01/02/24 08:26 01/02/24 08:10
01/01/24 01/02/24 01/03/24
06:59 06:59 06:59
Actual Weight 94.376 kg
Magnesium Cancelled 01/01/24 17:30
LAB Results
01/01/24
17:30
Troponin I 0.025
Physical Exam
Constitutional: No acute distress and Comfortable
EENT: Anicteric and Moist mucous membranes
Cardiovascular: Rhythm & rate is regular, S1S2 is normal and Murmur/rub/gallop absent
Respiratory: Respiratory effort normal and Lungs clear to auscul.
GI: Soft, Distention absent, Flat, Non tender and Normal bowel sounds
Neuro/Psych: AO x 3
Other: Skin (warm and dry without edema)
Data Reviewed
-
Date of Service: January 02, 2024
[2024-01-02 10:39] LABS: % Basophils 0.6 % (0-2); % Immature Granulocytes 0.5 % (0-0.5); % Lymphocytes 13.7 % (20.5-51.1); % Monocytes 9.8 % (1.7-9.3); % Neutrophils 70.4 % (42.2-75.2); Absolute Eosinophils 0.3 10^3/uL (0-0.7); Absolute Lymphocytes 0.9 10^3/uL (1.2-3.4); Absolute Monocytes 0.6 10^3/uL (0.1-0.6); Absolute Neutrophils 4.6 10^3/uL (1.4-6.5); Hematocrit 35.7 % (37.0-47.0); Hemoglobin 12.3 g/dL (12.0-16.0); Mean Corp Hgb Conc. 34.5 g/dL (33.0-37.0); Mean Corpuscular Hgb 30.8 pg (27.0-31.0); Mean Corpuscular Volume 89.5 fL (81.0-99.0); Nucleated Red Blood Cells % 0 %; Platelet Count 180 10^3/uL (130-400); Red Blood Cell Count 3.99 10^6/uL (4.20-5.40); Red Cell Dist. Width 13.8 % (11.5-14.5); White Blood Cell Count 6.6 10^3/uL (4.8-10.8)
[2024-01-02 11:12] LABS: ALT (SGPT) 23 U/L (0-35); AST (SGOT) 32 U/L (14-36); Albumin 4.2 g/dl (3.5-5.0); Alkaline Phosphatase 58 U/L (38-126); Blood Urea Nitrogen 32 mg/dl (7-17); Calcium 9.6 mg/dl (8.4-10.2); Carbon Dioxide 27 mmol/L (22-30); Chloride 103 mmol/L (98-107); Estimated Creatinine Clearance 49 ml/min; Glucose 106 mg/dl (70-99); Potassium 4.3 mmol/L (3.5-5.1); Sodium 138 mmol/L (135-145); Total Bilirubin 0.9 mg/dl (0.2-1.3); Total Protein 6.7 g/dl (6.3-8.2); eGFR > 60.00
[2024-01-02] MEDS: LASIX 40 MG PO (11:16)
[2024-01-02 12:21] LABS: D-Dimer 0.66 ug/mlFEU (0.00-0.50)
--- NOTE | 2024-01-02 13:16 | W.PN.HOSP.TC ---
Today's Communication/Plan
-
see above
Assessment / Plan
Assessment / Plan
NAD, resting comfortably in bed
Scleral anicteric
Moist mucous membranes
No JVD
CTA bilateral
Normal S1-S2 no murmurs
Soft nontender nondistended bowel sounds active
No peripheral pitting edema
Moves extremities spontaneously
AAO
WASHBURN, unclear as to etiology
-Cards does not believe cardiac in nature
-Pulm following
-Unlikely PE, D-dimer added on to previous coags, age adjust VTE unlikley. ALso, on chronic xarel
CAD
-continue dapt, bb, statin
Afib
-continue xarelto
Anticipated Discharge: Within 24 hours
Subjective/Interval History
-
Date of Service: January 02, 2024
seen and examined. no new complaints. no acute overnight events
washburn, i jones walked her around the [place] and she was/became dyspnic on exertion but did maintain o2 sat of -96-98%.
Objective Data
-
Labs:
Laboratory Results
01/02/24
10:20
WBC 6.6
Hgb 12.3
Hct 35.7 L
Plt Count 180
Sodium 138
Potassium 4.3
Chloride 103
Carbon Dioxide 27
BUN 32 H
Creatinine 0.9
Glucose 106 H
Calcium 9.6
Total Bilirubin 0.9
AST 32
ALT 23
Alkaline Phosphatase 58
Vital Signs:
Vital Signs
Temp Pulse Resp BP Pulse Ox
97.8 F 64 16 124/56 93
01/02/24 07:00 01/02/24 08:26 01/02/24 08:10 01/02/24 08:26 01/02/24 08:10
[2024-01-02] MEDS: XARELTO 15 MG PO (17:23)
[2024-01-02] MEDS: LIPITOR 40 MG PO (21:08)
[2024-01-02] MEDS: NORVASC 5 MG PO (21:08)
[2024-01-02] MEDS: HYTRIN 5 MG PO (21:08)
[2024-01-03 03:40] VITALS: BP 112/66
[2024-01-03 06:00] VITALS: BMI 38.0
[2024-01-03] MEDS: SPIRIVA RESPIMAT 2.5 MCG 2 PUFF INH (07:52)
[2024-01-03] MEDS: SYMBICORT 80/4.5 MCG INHALER 2 PUFF INH ×2 (07:52→18:18)
[2024-01-03 07:55] VITALS: BP 141/64
--- NOTE | 2024-01-03 07:59 | W.PN.HOSP.TC ---
Today's Communication/Plan
-
follow up with pulm and cards
etiology of washburn still unexplained
not requiring o2 though
will need to continue to clinically follow.
if unable to determine etiology then will plan to dc tomorrow and outpatient follow up with cardiology and pulmonary as an outpatient for further testing
Assessment / Plan
Assessment / Plan
NAD, resting comfortably in bed
Scleral anicteric
Moist mucous membranes
No JVD
CTA bilateral
Normal S1-S2 no murmurs
Soft nontender nondistended bowel sounds active
No peripheral pitting edema
Moves extremities spontaneously
AAO
WASHBURN, unclear as to etiology
-Cards does not believe cardiac in nature
-Pulm following
-Unlikely PE, D-dimer added on to previous coags, age adjust VTE unlikley. ALso, on chronic xarel
- - 2d echo from 12/31
- - CONCLUSIONS
Follow up study to evaluate for LVEF and pericardial effusion.
Normal biventricular size and systolic function without regional wall motion
abnormality. Estimated LVEF 55-60%.
Normal pericardium without effusion.
CAD
-continue dapt, bb, statin
Afib
-continue xarelto
Anticipated Discharge: 24 - 48 hours
Subjective/Interval History
-
Date of Service: January 03, 2024
seen and examined
no new compalitns
no acute overnigght events
still washburn
slightly betterthen today
was about to have banana slices with cheerios and milk
Objective Data
-
Vital Signs:
Vital Signs
Temp Pulse Resp BP Pulse Ox
97.5 F 67 17 112/66 98
01/03/24 03:40 01/03/24 07:57 01/03/24 07:57 01/03/24 03:40 01/03/24 07:57
I&O
01/02/24 01/03/24 01/04/24
06:59 06:59 06:59
Intake Total 120 / 120
Balance 120 / 120
[2024-01-03] MEDS: WELLBUTRIN XL (24 hour extended release) 150 MG PO (08:25)
[2024-01-03] MEDS: THERAGRAN 1 TABLET PO (08:25)
[2024-01-03] MEDS: TOPROL XL 50 MG PO (08:25)
[2024-01-03] MEDS: TIKOSYN 250 MCG PO ×2 (08:25→20:50)
[2024-01-03] MEDS: VITAMIN C 1000 MG PO (08:26)
[2024-01-03] MEDS: PLAVIX 75 MG PO (08:26)
[2024-01-03] MEDS: VITAMIN D3 (cholecalciferol) 25 MCG PO (08:26)
[2024-01-03] MEDS: DITROPAN 5 MG PO (08:27)
[2024-01-03] MEDS: LASIX 40 MG PO (08:27)
[2024-01-03] MEDS: ZYRTEC 10 MG PO (08:27)
[2024-01-03] MEDS: COZAAR 50 MG PO ×2 (08:27→20:51)
[2024-01-03 11:23] VITALS: BP 114/56
--- NOTE | 2024-01-03 12:17 | CM ---
Initial Assessment completed
[facility] IMM benefit explained; form signed @ 1210
Pharmacy verified: [facility], [address], [place]
Patient lives in a one story home w/basement; son lives with her; 2 steps to enter; grab bar in Walk-in Shower
PLOF: independent with personal care; has a cleaning service; Drives; ambulates in the home without a device; uses a cane for outside short distance and Rollator when walking long distance
SNF/Home Health utilization history: stay in [facility] 2018; [facility] for rehab 2018; Recent referral for home health with [facility] for VN
Transportation: family will provide ride home
Plan: discharge to home when stable; Will continue outpatient Cardiac Rehab @ [facility] when cleared to do so. Resume Home Health [facility]N [facility]
--- NOTE | 2024-01-03 12:41 | W.PN.CD ---
Addendum entered and electronically signed by Sinan Silva MD 01/03/24 14:43:
83 yo female with recent diagnosis of CAD and RCA stenting 12/29/23, paroxysmal A fib on xarelto, s/p PPM, chronic HFPEF, COPD is admitted with SOB. No chest pain/pressure. Exam with RRR, no murmurs, no edema.
Tele: SR 60s.
Follow up echo this admission showed normal LVEF, no pericardial effusion. I reviewed cath films with interventional cardiology this admission: no other targets for PCI identified. She does not appear to be in acute HF. I do not see a cardiac
etiology for her SOB at this time.
Please call us back with additional questions.
Original Note:
Today's Communication / Plan
-
Con't with pulmonary eval
SOB/WASHBURN not thought to be cardiac at this time
will sign off for now.
Impression / Plan
-
BACKGROUND: 83F with CAD s/p KATE to distal RCA 12/29/23 (unstable angina), paroxysmal atrial fibrillation (on Xarelto and Tikosyn), syncope with heart block s/p pacemaker, HFpEF, moderate TR, HTN, COPD, obesity who is here from the office (saw
Genaro for urgent visit) for evaluation of significant WASHBURN. She came to the ER last night for the same reason, and no obvious etiology found. She has also reportedly been having nausea. She is referred back for admission and further evaluation.
Full consult in chart.
Supervisor [employer]: Dr. Segura
WASHBURN:
-Minor improvement per pt report, still with activity notes it.
-No pericardial effusion, COVID negative, and CXR without acute process
-H/H stable
-LVEDP 22 mmHg 96.6 kg (12/29/2023)
-pulm work up in progress
-at this point not thought to be cardiac related.
Nausea, per primary
CAD with PCI 12/29/23:
-Cath 7/15/24: Right dominant circulation with a 30% lesion in the distal LAD, a 40-50% lesion in the mid RCA and an occlusive, 80% lesion in the distal RCA status post successful PCI
-on Plavix and Xarelto, continue
-Anginal complaint was chest pressure prior to PCI, resolved
Paroxysmal atrial fibrillation
-Currently in NSR.
-[place] was ~30% on her last outpatient device check on dofetilide and metoprolol (propanolol PRN).
-[id number]: Score at least 5 (Heart failure, HTN, age 75 or more, female gender), on Xarelto
HFpEF: chronic
-Lasix recently increased, continue
-does not appear volume overloaded
Hypertension, stable on ARB, CCB, and BB, continue
Pacemaker, stable
SUBJECTIVE:
Mild improvement in SOB
Still notes WASHBURN with ambulating. .
Physical Exam
Vital Signs/Labs
Vital Signs
Temp Pulse Resp BP Pulse Ox
98.8 F 66 20 114/56 99
01/03/24 11:23 01/03/24 11:23 01/03/24 11:23 01/03/24 11:23 01/03/24 11:23
01/02/24 01/03/24 01/04/24
06:59 06:59 06:59
Actual Weight 94.376 kg 94.064 kg
01/02/24 10:20
01/02/24 10:20
Magnesium Cancelled 01/01/24 17:30
LAB Results
01/01/24
17:30
Troponin I 0.025
Physical Exam
Constitutional: No acute distress
Cardiovascular: Rhythm & rate is regular
Respiratory: Respiratory effort normal and Lungs clear to auscul.
Neuro/Psych: AO x 3
Data Reviewed
-
Date of Service: January 03, 2024
EKG: Other (SR, APVS)
--- NOTE | 2024-01-03 13:40 | W.PN.PUL3 ---
Today's Communication / Plan
-
Continue current care.
If stable overnight okay with discharge planning.
Assessment
-
83 you female who saw Dr Gandhi in past for JON/ CPAP intol also carries dx of COPD (nonsmoker with 2nd hand exp, ?PFT) managed by primary on Trelegy recently discharged and returns with inc SOB - pulm consulted for SOB on 01/02/24.
SOB
COPD without sig exacerbation
Nausea
Conditions present prior to admissnion:
Recent DH 12/30/23- PCI to distal RCA
CAD status post distal RCA PCI 12/26/2023
HTN
HLD
paroxysmal A-fib
chronic CHF COPD
History of sleep apnea Dx 4 to 5 years ago could not tolerate machine
dysphagia with esophageal dysmotility and delayed emptying
anxiety
urinary retention
history of brain aneurysm being watched
cervical radiculopathy
Plan
Etiology of WASHBURN unclear - VTE disease unlikely on chronic Xarelto, chest clear without evidence for wheezing and no clear cardiac causes
No oxygen requirement.
Nebs if needed - not bronchospastic
Trelegy or equivalent while here-
No indication for steroids
No indication for ABX
Patient is physical therapy. No oxygen saturation with activity.
Heart rate appropriately increased from 64 to 109 with ambulation.
Cardiac eval, at this point no acute cardiac issues.
Echo noted and summarized below
Less likely thromboembolic disease as the patient has been on anticoagulation.
History of sleep apnea- mild and cpap intolerant- saw Dr Gandhi
Patient was seen last year by me also regarding shortness of breath, this is a chronic problem for many years.
Evaluation in the outpatient setting was unrevealing.
Patient only has very mild airflow obstruction, possibly due to secondhand smoking exposure. Has been on inhalers in the outpatient setting.
She has no signs or symptoms suggestive of asthma.
At that time also she underwent CT angiogram that was negative for parenchymal lung disease or thromboembolic disease.
She was also referred to pulmonary rehabilitation for deconditioning component but she did not qualify based on severity of airflow obstruction.
-
Patient has been hemodynamically stable without oxygen requirements.Not tachycardic.
Cardiopulmonary exercise testing can be considered in the outpatient setting if the patient continues to report shortness of breath.
-
Agree with discharge planning in 24 hours if remains stable.
Data
CXR - 01/01/24- NAD
CT angio 05/29/22-There is no pulmonary embolismThere is no aortic dissectionThere is minimal 3-4 mm pericardial effusionThere is atherosclerosisThere is small hiatal herniaThere is hepatomegaly
Cath 12/29/23-1. Right dominant circulation with a 30% lesion in the distal LAD, a 40-50% lesion in the mid RCA and an occlusive, 80% lesion in the distal RCA status post successful PCI (Xience Skypoint 3.0 x 23 KATE) with reduction in stenosis to
0%, maintaining ROSA-3 flow. 2. Moderately elevated filling pressures (LVEDP = 22 mmHg at 96.6 kg).
Echo 01/01/24 - EF 55%, no effusion
PSG 01/2019 - SE 45%, AHI 4.9, stefano 82%, 7% time spent less than 90%, PLM index 15
Subjective Data
-
Date of Service:
Date of Service: January 03, 2024
Objective Data
Data Reviewed
Vital Signs / I&O / Oxygen:
Vital Signs
Temp Pulse Resp BP Pulse Ox
98.8 F 66 20 114/56 99
01/03/24 11:23 01/03/24 11:23 01/03/24 11:23 01/03/24 11:23 01/03/24 11:23
Intake and Output
01/02/24 01/03/24 01/04/24
06:59 06:59 06:59
Intake Total 120 / 120
Balance 120 / 120
SaO2 99
Physical Exam
General: Respiratory Distress (n) and Comfortable
HEENT: Normocephalic
Cardiovascular: S1-S2 and Regular Rhythm
Respiratory: Clear and Non-Labored Respirations
GI: Soft and Non Distended
Neurology: Awake and Alert
Skin: Warm (n)
Labs/Micro/Reports
Lab Data
01/02/24 10:20
01/02/24 10:20
[2024-01-03 15:58] VITALS: BP 131/64
[2024-01-03] MEDS: XARELTO 15 MG PO (17:05)
[2024-01-03 19:47] VITALS: BP 130/71
[2024-01-03] MEDS: LIPITOR 40 MG PO (21:03)
[2024-01-03] MEDS: HYTRIN 5 MG PO (21:03)
[2024-01-03] MEDS: NORVASC 5 MG PO (21:07)
[2024-01-03 23:41] VITALS: BP 129/73
[2024-01-04 03:28] VITALS: BP 128/62
[2024-01-04 07:07] VITALS: BP 129/64
[2024-01-04 07:46] LABS: Glucose - Point of Care 100 mg/dl (70-99)
[2024-01-04] MEDS: SPIRIVA RESPIMAT 2.5 MCG 2 PUFF INH (08:01)
[2024-01-04] MEDS: SYMBICORT 80/4.5 MCG INHALER 2 PUFF INH (08:01)
[2024-01-04] MEDS: COZAAR 50 MG PO (08:30)
[2024-01-04] MEDS: VITAMIN C 1000 MG PO (08:30)
[2024-01-04] MEDS: WELLBUTRIN XL (24 hour extended release) 150 MG PO (08:31)
[2024-01-04] MEDS: VITAMIN D3 (cholecalciferol) 25 MCG PO (08:31)
[2024-01-04] MEDS: DITROPAN 5 MG PO (08:31)
[2024-01-04] MEDS: TOPROL XL 50 MG PO (08:32)
[2024-01-04] MEDS: ZYRTEC 10 MG PO (08:32)
[2024-01-04] MEDS: PLAVIX 75 MG PO (08:32)
[2024-01-04] MEDS: TIKOSYN 250 MCG PO (08:32)
[2024-01-04] MEDS: LASIX 40 MG PO (08:33)
[2024-01-04] MEDS: THERAGRAN 1 TABLET PO (08:33)
[2024-01-04 11:00] VITALS: BP 118/60
--- NOTE | 2024-01-04 12:22 | W.PN.HOSP.TC ---
Today's Communication/Plan
-
dc home todya
outpt pulm and cards follow up
Assessment / Plan
Assessment / Plan
NAD, resting comfortably in bed
Scleral anicteric
Moist mucous membranes
No JVD
CTA bilateral
Normal S1-S2 no murmurs
Soft nontender nondistended bowel sounds active
No peripheral pitting edema
Moves extremities spontaneously
AAO
WASHBURN, unclear as to etiology
-Cards does not believe cardiac in nature
-Pulm following
-Unlikely PE, D-dimer added on to previous coags, age adjust VTE unlikley. ALso, on chronic xarel
- - 2d echo from 12/31
- - CONCLUSIONS
Follow up study to evaluate for LVEF and pericardial effusion.
Normal biventricular size and systolic function without regional wall motion
abnormality. Estimated LVEF 55-60%.
Normal pericardium without effusion.
CAD
-continue dapt, bb, statin
Afib
-continue xarelto
Anticipated Discharge: Today
Subjective/Interval History
-
Date of Service: January 04, 2024
seen and examined
feeling better
still no etiology of sob
understands that she will need to see Cards and pulm as an outpatient
Objective Data
-
Vital Signs:
Vital Signs
Temp Pulse Resp BP Pulse Ox
97.4 F 63 12 118/60 97
01/04/24 11:00 01/04/24 11:00 01/04/24 11:00 01/04/24 11:00 01/04/24 08:06
I&O
01/03/24 01/04/24 01/05/24
06:59 06:59 06:59
Intake Total 120 / 120
Balance 120 / 120
--- NOTE | 2024-01-04 12:31 | W.DCSUMMARY ---
Discharge Summary
Discharge Data
Date of Admission: 01/01/24
Date of Discharge: 01/04/24
-
Pending Results: No
Hospital Course
83F obstructive CAD status post distal RCA PCI, paroxysmal A-fib, chronic CHF, COPD, sleep apnea and noncompliant with CPAP HTN, HLD, dysphagia with esophageal dysmotility and delayed emptying, anxiety, urinary retention, history of brain aneurysm
being watched, cervical radiculopathy presented with sob. recent cad stent placement. 2d echo completed without abnormalities. seen by cardiology and pulmondary. unclear as to etiology. no oxygen required even with ambulaiton. need outpatient
cardiopulmonary testing.
Discharge Plan
-
Patient Disposition: Home (Routine Discharge)
Discharge Diagnosis/Procedures: obstructive CAD status post distal RCA PCI, paroxysmal A-fib, chronic CHF, COPD, sleep apnea and noncompliant with CPAP HTN, HLD, dysphagia with esophageal dysmotility and delayed emptying, anxiety, urinary retention,
history of brain aneurysm being watched, cervical radiculopathy
Condition: Good
Diet: As tolerated
Activity: As tolerated
Activity Restrictions/Additional Instructions:
presented with sob. recent cad stent placement. 2d echo completed without abnormalities. seen by cardiology and pulmondary. unclear as to etiology. no oxygen required even with ambulaiton. need outpatient cardiopulmonary testing.
Referrals:
Sinan Silva MD [Active] - in two to three weeks
Yordy Triplett MD [Family Provider] -
Mo Kwong MD [Active] - in two to three weeks
Prescriptions:
Continued
oxybutynin chloride 5 MG tablet
5 mg PO DAILY
terazosin 5 MG capsule
5 mg PO HS
ascorbic acid (vitamin C) [Vitamin C] 500 MG tablet
1,000 mg PO DAILY
Trelegy Ellipta 100-62.5-25 mcg blister with device
1 ea INHALATION R DAILY
propranolol 20 MG tablet
20 mg PO DAILYPRN PRN (Reason: palpitations/afib)
dofetilide 250 MCG capsule
250 mcg PO BID
metoprolol succinate 50 mg Tablet Extended Release 24 Hr
50 mg PO DAILY
therapeutic multivitamin Tablet
1 tab PO DAILY
amlodipine 5 mg Tablet
5 mg PO HS
acetaminophen [Tylenol Extra Strength] 500 mg Tablet
1,000 mg PO Q6HPRN PRN (Reason: mild pain)
bupropion HCl 150 mg Tablet Extended Release 24 Hr
150 mg PO DAILY
Xarelto 15 mg Tablet
15 mg PO QPM 30 Days Qty: 30 0RF
furosemide 40 mg Tablet
40 mg PO DAILY 30 Days Qty: 30 0RF
clopidogrel 75 mg Tablet
75 mg PO DAILY 30 Days Qty: 30 0RF
losartan 50 mg Tablet
50 mg PO BID 30 Days Qty: 60 0RF
atorvastatin 40 mg tablet
40 mg PO HS 30 Days Qty: 30 0RF
cetirizine [Zyrtec] 10 mg Tablet
10 mg PO DAILY
cholecalciferol (vitamin D3) 25 mcg (1,000 unit) Tablet
25 mcg PO DAILY
Discharge Orders:
Discharge Patient (As Directed); Ordered 01/04/24
Ordered By: Dustin Vazquez
Discharge Date and Time
Print Language: SAMI
--- NOTE | 2024-01-04 13:56 | CHAP ---
Nargis was in good spirits, feeling better and taking everything as it comes. Emotional and spiritual support provided.
== END 2024-01-04 13:56 | disposition home health service (06) ==
LOC: 4 EAST ACU 19:36
PROVIDERS: Clinical Nurse Specialist Family Health; ADMITTING PHYSICIAN Internal Medicine; ATTENDING PHYSICIAN Hospitalist; EMERGENCY PHYSICIAN Student in an Organized Health Care Education/Training Program; FAMILY PHYSICIAN Family Medicine; OTHER PHYSICIAN Internal Medicine Critical Care Medicine
DX: R06.09 Other forms of dyspnea (principal); R11.0 Nausea; I25.10 Atherosclerotic heart disease of native coronary artery without angina pectoris; I48.0 Paroxysmal atrial fibrillation; I11.0 Hypertensive heart disease with heart failure; E78.00 Pure hypercholesterolemia, unspecified; I50.32 Chronic diastolic (congestive) heart failure; J44.89 Other specified chronic obstructive pulmonary disease; I07.1 Rheumatic tricuspid insufficiency; E66.01 Morbid (severe) obesity due to excess calories; M54.12 Radiculopathy, cervical region; G47.33 Obstructive sleep apnea (adult) (pediatric); F41.9 Anxiety disorder, unspecified; R33.9 Retention of urine, unspecified; Z91.199 Patient's noncompliance with other medical treatment and regimen due to unspecified reason; Z86.79 Personal history of other diseases of the circulatory system; Z77.22 Contact with and (suspected) exposure to environmental tobacco smoke (acute) (chronic); Z91.040 Latex allergy status; Z79.01 Long term (current) use of anticoagulants; Z95.0 Presence of cardiac pacemaker; Z95.5 Presence of coronary angioplasty implant and graft; Z79.02 Long term (current) use of antithrombotics/antiplatelets; Z68.37 Body mass index [BMI] 37.0-37.9, adult; Z11.52 Encounter for screening for COVID-19
CPT/HCPCS: 93308; 71046; 80053; 82962; 84484; 85025; 85379; 87811; 93005; 94640; 94761; 97162; 97166; 99285; G0378

== ENCOUNTER → 2024-01-08 12:02 | Outpatient (REF) | payer MEDICARE, OTHER, SELFPAY ==
[2024-01-08 15:18] LABS: Blood Urea Nitrogen 29 mg/dl (7-17); Calcium 9.5 mg/dl (8.4-10.2); Carbon Dioxide 22 mmol/L (22-30); Chloride 104 mmol/L (98-107); Glucose 121 mg/dl (70-99); Potassium 4.2 mmol/L (3.5-5.1); Sodium 137 mmol/L (135-145); eGFR 55.21
== END ==
LOC: HWLAB 12:02
PROVIDERS: ATTENDING PHYSICIAN Internal Medicine Cardiovascular Disease; FAMILY PHYSICIAN Family Medicine
DX: I50.32 Chronic diastolic (congestive) heart failure (principal)
CPT/HCPCS: 36415; 80048

== ENCOUNTER → 2024-03-17 11:33 | Outpatient (REF) | payer MEDICARE, OTHER, SELFPAY | LOC: HWRAD 11:33 | PROVIDERS: ATTENDING PHYSICIAN Nurse Practitioner Family; FAMILY PHYSICIAN Family Medicine | DX: M25.512 Pain in left shoulder (principal) | CPT/HCPCS: 73200 ==

== ENCOUNTER 2024-07-18 11:40 | Emergency (ER) | payer MEDICARE, OTHER, SELFPAY ==
[2024-07-18 11:43] VITALS: BP 144/86
--- NOTE | 2024-07-18 12:55 | ED.GENMED ---
History of Present Illness
General
Chief Complaint: Cold/Flu/URI Symptoms
Time Seen by Provider: 07/18/24 12:55
History of Present Illness
History of Present Illness:
TIME OF INITIAL ENCOUNTER: 1 PM
HPI: About 10 days ago, the patient started having flulike illness. She went to the primary care doctor and was diagnosed with the flu. She was not placed on Tamiflu given the timing of the symptoms. She later was placed on azithromycin and
steroids and continues to feel unwell. She does have a history of COPD but has not been using her rescue inhaler. Her main symptom currently is generalized fatigue and unwell feeling.
EXAM:
GENERAL: Appears somewhat generally weak and debilitated
HEENT: Moist oral mucosa
CARDIOVASCULAR: No murmurs, normal heart rate, regular rhythm, No chest wall tenderness
PULMONARY: No respiratory distress, breath sounds are somewhat decreased with wheeze bilaterally
ABDOMEN: Soft with no peritoneal signs, no tenderness
NEUROLOGIC: Fair strength all extremities, no coordination deficits
PSYCHIATRIC: Appropriate mental status, normal insight and judgement
EXTREMITIES: Nontender, no edema, moves all extremities equally
SKIN: No rash, no lesions
NUMBER AND COMPLEXITY OF PROBLEMS ADDRESSED AT THE ENCOUNTER
� Chronic conditions affecting care: COPD, high blood pressure, A-fib on Xarelto
� Acute Exacerbation and/or Progression of Chronic Illness: This is an acute problem
� Differential Diagnosis includes: COPD exacerbation, CHF, viral syndrome/prolonged viral illness, pneumonia
AMOUNT AND/OR COMPLEXITY OF DATA TO BE REVIEWED AND ANALYZED
� I performed an independent evaluation of and my interpretation is:
EKG: V paced at 73
CT:
X-rays: Chest x-ray shows no acute abnormality
Laboratory Studies: White count normal, hemoglobin normal, troponin less than 0.012, BNP 1480, BUN is slightly high at 32 which is near baseline
Other:
� Review of other/old records: I reviewed records, the patient was admitted here with multifactorial dyspnea last December.
� Clinical information was obtained by an independent historian: I spoke to son and son's girlfriend at bedside
� Prescriptions/Medications Considered but not given:
� Further testing considered but not performed:
RISK OF COMPLICATIONS AND/OR MORBIDITY OR MORTALITY OF PATIENT MANAGEMENT
� Social determinants of health affecting care: Lives at home
� Discussion with other providers:
� Escalation of care including admission/observation vs risk of discharge considered: The patient has a general unwell feeling. Patient is mildly hypertensive but otherwise vital signs initially unremarkable. Troponin less than
0.012. Chest x-ray clear. CBC unremarkable.
ANY OTHER UPDATES:
3:30 PM: I reassessed patient. Overall this has been an unremarkable ED workup. She reports may be some improvement after 500 mL of saline were given. She does report that her cough is loosened up a bit after receiving a DuoNeb. She already has
Tessalon Perles at home. No clear indication for admission to the hospital.
Past History
Past History
ED Past Medical History: Arrthythmia (Atrial fibrillation), Asthma, COPD, HTN, Hypercholesterolemia and Other (cervical radiculopathy, back pain, Brain Aneurysm that they watch, Retinopathy, Thyroid Nodules); Negative CHF or [place]
ED Past Surgical History: Cardiac (Pacemaker, Stent X 1), , Gynecological (Hysterectomy), Orthopedic (laminectomy with fusion, Trigger finger release, Carpal tunnel Right) and Other (cataracts, )
Social History
Tobacco: Non-smoker
Alcohol: Occasional
Drug: None
Personal:
Living: with family
Employment: Retired
Family History
Family History: Sudden
Phy Exam
Physical Exam
Physical Exam:
See HPI
Course
Orders/Labs/Results
Orders:
Orders
07/18/24 11:45
ECG [Electrocardiogram (*1)] Urgent
Reason for Study: Fatigue / Weakness
07/18/24 11:46
EKG- Treatment ONCE
07/18/24 13:03
0.9% Sodium Chloride 500 ml [Nss] 500 ml IV BOLUS
Ipratropium/Albuterol Sulfate [Duoneb] 3 ml INH R NOW STA
07/18/24 13:05
CR Chest - 2 Views Urgent
Comment:
Reason For Exam: persistent cough 10d after flu
07/18/24 13:20
Basic Metabolic Panel Urgent
Complete Blood Count/With Diff Urgent
NT-proBNP Urgent
TSH Reflex To Free T4 Urgent
Troponin I Urgent
Abnormal Lab Results
07/18/24
13:20
MCH 31.1 H pg
(27.0-31.0)
Abs Immat Gran (auto) 0.1 H 10^3/uL
(0-0.05)
Absolute Monos (auto) 0.8 H 10^3/uL
(0.1-0.6)
Immature Gran % 0.6 H %
(0-0.5)
Lymphocytes % 19.4 L %
(20.5-51.1)
Monocytes % 10.3 H %
(1.7-9.3)
BUN 32 H mg/dl
(7-17)
07/18/24 13:20
07/18/24 13:20
Vital Signs
Initial and Last Documented VS:
Initial Vital Signs
Temp Pulse Resp BP Pulse Ox
36.5 C 69 18 144/86 99
07/18/24 11:43 07/18/24 11:43 07/18/24 11:43 07/18/24 11:43 07/18/24 11:43
Last Documented Vital Signs
Temp Pulse Resp BP Pulse Ox
36.5 C 75 15 144/86 96
07/18/24 11:43 07/18/24 12:45 07/18/24 12:45 07/18/24 11:43 07/18/24 12:45
*Critical Care Note
Total Time (30-74mins, 75-104mins- exclusive of procedures): Not Applicable
ED Attending Note
-
Portions of this chart may have been created with voice recognition software.� Occasional wrong word or��sound alike� substitutions may have occurred due to the inherent limitations of voice recognition software.
Discharge Plan
Departure
Prescriptions:
No Action
oxybutynin chloride 5 MG tablet
5 mg PO DAILY
terazosin 5 MG capsule
5 mg PO HS
ascorbic acid (vitamin C) [Vitamin C] 500 MG tablet
1,000 mg PO DAILY
Trelegy Ellipta 100-62.5-25 mcg blister with device
1 ea INHALATION R DAILY
propranolol 20 MG tablet
20 mg PO DAILYPRN PRN (Reason: palpitations/afib)
dofetilide 250 MCG capsule
250 mcg PO BID
metoprolol succinate 50 mg Tablet Extended Release 24 Hr
50 mg PO DAILY
therapeutic multivitamin Tablet
1 tab PO DAILY
amlodipine 5 mg Tablet
5 mg PO HS
acetaminophen [Tylenol Extra Strength] 500 mg Tablet
1,000 mg PO Q6HPRN PRN (Reason: mild pain)
bupropion HCl 150 mg Tablet Extended Release 24 Hr
150 mg PO DAILY
Xarelto 15 mg Tablet
15 mg PO QPM 30 Days Qty: 30 0RF
furosemide 40 mg Tablet
40 mg PO DAILY 30 Days Qty: 30 0RF
clopidogrel 75 mg Tablet
75 mg PO DAILY 30 Days Qty: 30 0RF
losartan 50 mg Tablet
50 mg PO BID 30 Days Qty: 60 0RF
atorvastatin 40 mg tablet
40 mg PO HS 30 Days Qty: 30 0RF
cetirizine [Zyrtec] 10 mg Tablet
10 mg PO DAILY
cholecalciferol (vitamin D3) 25 mcg (1,000 unit) Tablet
25 mcg PO DAILY
Referrals:
Yordy Triplett MD [Family Provider] -
Interventions
Interventions:
*Risk Screen - Suicide Last Done: 07/18/24 11:43
*General Assessment Last Done: 07/18/24 11:43
*Neglect/Abuse Screening Last Done: 07/18/24 11:43
ED- Fall Risk Assessment Last Done: 07/18/24 12:51
*ED COVID-19 Vaccine History Last Done: 07/18/24 12:51
ED- Pulmonary Assessment Last Done: 07/18/24 12:51
Discharge Date and Time
Print Language: HUNGARIAN
[2024-07-18 13:20] VITALS: BMI 39.5
[2024-07-18] MEDS: DUONEB 3 ML INH (13:21)
[2024-07-18] MEDS: NSS 500 IV (13:23)
[2024-07-18 14:01] LABS: % Basophils 0.5 % (0-2); % Eosinophils 1.9 % (0-6); % Immature Granulocytes 0.6 % (0-0.5); % Lymphocytes 19.4 % (20.5-51.1); % Monocytes 10.3 % (1.7-9.3); % Neutrophils 67.3 % (42.2-75.2); Absolute Eosinophils 0.2 10^3/uL (0-0.7); Absolute Immature Granulocytes 0.1 10^3/uL (0-0.05); Absolute Lymphocytes 1.6 10^3/uL (1.2-3.4); Absolute Monocytes 0.8 10^3/uL (0.1-0.6); Absolute Neutrophils 5.4 10^3/uL (1.4-6.5); Hematocrit 43.7 % (37.0-47.0); Hemoglobin 15.2 g/dL (12.0-16.0); Mean Corp Hgb Conc. 34.8 g/dL (33.0-37.0); Mean Corpuscular Hgb 31.1 pg (27.0-31.0); Mean Corpuscular Volume 89.4 fL (81.0-99.0); Nucleated Red Blood Cells % 0 %; Platelet Count 235 10^3/uL (130-400); Red Blood Cell Count 4.89 10^6/uL (4.20-5.40); Red Cell Dist. Width 13.4 % (11.5-14.5)
[2024-07-18 14:30] LABS: NT-proBNP 1480 pg/ml; Troponin I < 0.012 ng/ml
[2024-07-18 14:41] LABS: Blood Urea Nitrogen 32 mg/dl (7-17); Calcium 9.6 mg/dl (8.4-10.2); Carbon Dioxide 25 mmol/L (22-30); Chloride 98 mmol/L (98-107); Estimated Creatinine Clearance 49 ml/min; Glucose 94 mg/dl (70-99); Sodium 137 mmol/L (135-145); eGFR > 60.00
[2024-07-18 15:05] LABS: TSH Reflex To Free T4 2.27 uIU/ml (0.47-4.68)
== END 2024-07-18 16:13 | disposition home or self-care (01) ==
LOC: EMR 11:40
PROVIDERS: EMERGENCY PHYSICIAN Emergency Medicine; FAMILY PHYSICIAN Family Medicine
DX: R53.1 Weakness (principal); J44.89 Other specified chronic obstructive pulmonary disease; I48.91 Unspecified atrial fibrillation; I10 Essential (primary) hypertension; J45.909 Unspecified asthma, uncomplicated; E78.00 Pure hypercholesterolemia, unspecified; Z90.710 Acquired absence of both cervix and uterus; Z95.0 Presence of cardiac pacemaker; Z95.5 Presence of coronary angioplasty implant and graft
CPT/HCPCS: 99283; 94640; 96360; 71046; 80048; 83880; 84443; 84484; 85025; 93005

== ENCOUNTER → 2024-07-26 12:42 | Outpatient (REF) | payer MEDICARE, OTHER, SELFPAY | LOC: RAD 12:42 | PROVIDERS: ATTENDING PHYSICIAN Nurse Practitioner Family; FAMILY PHYSICIAN Family Medicine | DX: R05.8 Other specified cough (principal) | CPT/HCPCS: 71250 ==

== ENCOUNTER 2024-08-21 04:28 | Emergency (ER) | payer MEDICARE, OTHER, SELFPAY ==
[2024-08-21 04:28] VITALS: BMI 38.0
[2024-08-21 04:32] VITALS: BP 153/84
[2024-08-21 06:19] VITALS: BP 138/79
--- NOTE | 2024-08-21 06:32 | ED.GENMED ---
History of Present Illness
General
Chief Complaint: Musculo-Skeletal Complaint
Source: patient and family
Time Seen by Provider: 08/21/24 06:17
History of Present Illness
History of Present Illness:
This patient is an 84-year-old female presents emergency department with her son and son's girlfriend with complaints of pain in the left foot area that developed about 4 to 5 days ago but got particularly worse in the middle the night tonight. She
denies recent trauma or falls. She describes the pain is localized specifically to the arch area initially and saw her primary care doctor and was prescribed steroids. She will be taking her fourth day of steroids today. However, in the middle
the night, she noted more intense pain described as 'burning' located in the arch but also on the top of the foot. It is present at rest but worse with standing or walking. She denies recent immobilization, recent surgery, calf swelling, new
dyspnea, chest pain. Patient is anticoagulated. She denies fever, chills, numbness, weakness, or other complaints.
Past History
Past History
ED Past Medical History: Arrthythmia (Atrial fibrillation), Asthma, CAD, CHF, COPD, HTN, Hypercholesterolemia and Other (cervical radiculopathy, back pain, Brain Aneurysm that they watch, Retinopathy, Thyroid Nodules)
ED Past Surgical History: Cardiac (Pacemaker, Stent X 1), , Gynecological (Hysterectomy), Orthopedic (laminectomy with fusion, Trigger finger release, Carpal tunnel Right) and Other (cataracts, )
Social History
Tobacco: Non-smoker
Alcohol: Occasional
Drug: None
Personal:
Living: with family
Employment: Retired
Family History
Family History: Sudden
Phy Exam
Physical Exam
Physical Exam:
GENERAL: Alert , in no apparent distress
EYE: pupils equal and reactive
NECK: Supple, no significant adenopathy.
ENT: o/p clr, mmm.
CARDIAC: Regular rate and rhythm .
LUNGS: Clear breath sounds bilaterally, no acute respiratory distress, no wheezes/rales/rhonchi
ABDOMEN: Soft, without focal tenderness, no r/g, no cvat
NEUROLOGICAL: Alert and oriented, no focal neuro deficits
SKIN: Warm and dry, skin intact.
MUSCULOSKELETAL: No edema, well perfused. 2+ DP/PT pulses bilaterally, foot is well-perfused without cyanosis or pallor. Left foot/ankle area without redness warmth fluctuance or other skin soft tissue abnormalities. Mild tenderness to palpation
noted in the arch area, difficult to localize. No specific bony tenderness. Range of motion is full. Sensation intact to light touch.
PSYCH: Normal and appropriate interaction.
Course
Orders/Labs/Results
Orders:
Orders
08/21/24 04:37
Foot, Left 3 View [CR Foot - Left Min 3 Views] Urgent
Comment:
Reason For Exam: pain L foot and ankle
08/21/24 04:38
Ankle, left 3 view CR [CR Ankle - Left Min 3 Views ] Urgent
Comment:
Reason For Exam: non traumatic pain
Vital Signs
Initial and Last Documented VS:
Initial Vital Signs
Temp Pulse Resp BP Pulse Ox
97.3 F 100 22 153/84 98
08/21/24 04:32 08/21/24 04:32 08/21/24 04:32 08/21/24 04:32 08/21/24 04:32
Last Documented Vital Signs
Temp Pulse Resp BP Pulse Ox
97.3 F 100 22 153/84 98
08/21/24 04:32 08/21/24 04:32 08/21/24 04:32 08/21/24 04:32 08/21/24 04:32
Update Note
Update Note:
Patient presents to the Emergency Department with ____left foot and ankle pain
Number and Complexity of Problems Addressed at the Encounter
� Chronic conditions affecting care:
� Acute Exacerbation and/or Progression of Chronic Illness:
� Differential Diagnosis includes: But not limited to DVT, plantar fasciitis, arthritis, etc. etc.
Amount and/or Complexity of Data to be Reviewed and Analyzed
� I performed an independent evaluation of and my interpretation is:
EKG:
CT:
Xrays: Foot and ankle read by me NAD wet read inserted
Laboratory Studies:
Other:
� Review of other/old records reveals: Patient was admitted December 2023 with dyspnea of unknown etiology, echo within normal limits at that time
� Clinical information was obtained by an independent historian: Son and son's girlfriend who are at bedside
� Prescriptions/Medications Considered but not given:
� Further testing considered but not performed:
Risk of Complications and/or Morbidity or Mortality of Patient Management
� Social determinants of health affecting care:
� Discussion with other providers (PCP, Hospitalists, Consultants, etc):
� Escalation of care including admission/observation vs risk of discharge considered: No signs to suggest acute ischemia, infection, trauma/break, swelling. Low suspicion for DVT especially given patient's anticoagulant use.
Differential diagnosis includes plantar fasciitis which I think is the most likely diagnosis. Patient is able to stand and walk as demonstrated here and has a cane with her. No weakness. Recommend addition of Neurontin to help manage symptoms
with Ortho follow-up promptly. Discussed with patient and family reasons to return to the ER.
ED Attending Note
-
Portions of this chart may have been created with voice recognition software.� Occasional wrong word or��sound alike� substitutions may have occurred due to the inherent limitations of voice recognition software.
Discharge Plan
Departure
Patient Disposition: Home (Routine Discharge)
Date of Disposition: 08/21/24
Time of Disposition: 06:36
Patient with high blood pressure during this ER visit?: Yes
Condition: Good
Discharge Problem:
Plantar fasciitis
Instructions: Plantar fasciitis, BLOOD PRESSURE
Prescriptions:
New
gabapentin [Neurontin] 300 mg capsule
300 mg PO BID Qty: 30 0RF
No Action
oxybutynin chloride 5 MG tablet
5 mg PO DAILY
terazosin 5 MG capsule
5 mg PO HS
ascorbic acid (vitamin C) [Vitamin C] 500 MG tablet
1,000 mg PO DAILY
Trelegy Ellipta 100-62.5-25 mcg blister with device
1 ea INHALATION R DAILY
propranolol 20 MG tablet
20 mg PO DAILYPRN PRN (Reason: palpitations/afib)
dofetilide 250 MCG capsule
250 mcg PO BID
metoprolol succinate 50 mg Tablet Extended Release 24 Hr
50 mg PO DAILY
therapeutic multivitamin Tablet
1 tab PO DAILY
amlodipine 5 mg Tablet
5 mg PO HS
acetaminophen [Tylenol Extra Strength] 500 mg Tablet
1,000 mg PO Q6HPRN PRN (Reason: mild pain)
bupropion HCl 150 mg Tablet Extended Release 24 Hr
150 mg PO DAILY
Xarelto 15 mg Tablet
15 mg PO QPM 30 Days Qty: 30 0RF
furosemide 40 mg Tablet
40 mg PO DAILY 30 Days Qty: 30 0RF
clopidogrel 75 mg Tablet
75 mg PO DAILY 30 Days Qty: 30 0RF
losartan 50 mg Tablet
50 mg PO BID 30 Days Qty: 60 0RF
atorvastatin 40 mg tablet
40 mg PO HS 30 Days Qty: 30 0RF
cetirizine [Zyrtec] 10 mg Tablet
10 mg PO DAILY
cholecalciferol (vitamin D3) 25 mcg (1,000 unit) Tablet
25 mcg PO DAILY
Referrals:
Anuj Dumont MD [Active] - Next open appointment
Yordy Triplett MD [Family Provider] -
Activity Restrictions/Additional Instructions:
IF YOU DEVELOP INCREASING OR NEW PAIN, ANY REDNESS OR SWELLING, FEVER, WEAKNESS, NUMBNESS, GET WORSE, DO NOT GET BETTER, OR OTHER WORRISOME SIGNS, PLEASE RETURN TO THE ER IMMEDIATELY.
Interventions
Interventions:
*Risk Screen - Suicide Last Done: 08/21/24 04:32
*General Assessment Last Done: 08/21/24 05:03
*ED COVID-19 Vaccine History Last Done: 08/21/24 05:03
ED-Musculoskeletal Assessment Last Done: 08/21/24 05:05
Discharge Date and Time
Print Language: HUNGARIAN
[2024-08-21] MEDS: NEURONTIN 300 MG PO (06:51)
== END 2024-08-21 07:00 | disposition home or self-care (01) ==
LOC: EMR 04:28
PROVIDERS: EMERGENCY PHYSICIAN Emergency Medicine; FAMILY PHYSICIAN Family Medicine
DX: M72.2 Plantar fascial fibromatosis (principal); I48.91 Unspecified atrial fibrillation; J45.909 Unspecified asthma, uncomplicated; I25.10 Atherosclerotic heart disease of native coronary artery without angina pectoris; I11.0 Hypertensive heart disease with heart failure; I50.9 Heart failure, unspecified; E78.00 Pure hypercholesterolemia, unspecified; J44.9 Chronic obstructive pulmonary disease, unspecified; Z90.710 Acquired absence of both cervix and uterus; Z95.0 Presence of cardiac pacemaker; Z95.5 Presence of coronary angioplasty implant and graft
CPT/HCPCS: 99283; 73610; 73630

== ENCOUNTER → 2024-09-15 07:50 | Outpatient (REF) | payer MEDICARE, OTHER, SELFPAY | LOC: RAD 07:50 | PROVIDERS: ATTENDING PHYSICIAN Student in an Organized Health Care Education/Training Program; FAMILY PHYSICIAN Family Medicine | DX: M25.572 Pain in left ankle and joints of left foot (principal) | CPT/HCPCS: 76881 ==

== ENCOUNTER → 2024-10-29 10:06 | Outpatient (REF) | payer MEDICARE, OTHER, SELFPAY ==
[2024-10-29 15:44] LABS: % Basophils 0.9 % (0-2); % Eosinophils 3.6 % (0-6); % Immature Granulocytes 0.2 % (0-0.5); % Lymphocytes 15.7 % (20.5-51.1); % Monocytes 10.5 % (1.7-9.3); % Neutrophils 69.1 % (42.2-75.2); Absolute Basophils 0.1 10^3/uL (0-0.2); Absolute Eosinophils 0.2 10^3/uL (0-0.7); Absolute Lymphocytes 0.9 10^3/uL (1.2-3.4); Absolute Monocytes 0.6 10^3/uL (0.1-0.6); Hemoglobin 12.1 g/dL (12.0-16.0); Mean Corp Hgb Conc. 33.6 g/dL (33.0-37.0); Mean Corpuscular Hgb 31.8 pg (27.0-31.0); Mean Corpuscular Volume 94.7 fL (81.0-99.0); Mean Platelet Volume 10.8 fL (7.4-10.4); Nucleated Red Blood Cells % 0 %; Platelet Count 185 10^3/uL (130-400); Red Cell Dist. Width 13.8 % (11.5-14.5); White Blood Cell Count 5.8 10^3/uL (4.8-10.8)
[2024-10-29 15:48] LABS: ALT (SGPT) 18 U/L (0-35); AST (SGOT) 24 U/L (14-36); Albumin 4.3 g/dl (3.5-5.0); Alkaline Phosphatase 63 U/L (38-126); Blood Urea Nitrogen 28 mg/dl (7-17); Calcium 9.6 mg/dl (8.4-10.2); Carbon Dioxide 32 mmol/L (22-30); Chloride 107 mmol/L (98-107); Glucose 102 mg/dl (70-99); HDL Cholesterol 56 mg/dl; LDL Cholesterol, Calculated 51 mg/dl; Potassium 4.1 mmol/L (3.5-5.1); Sodium 141 mmol/L (135-145); Total Cholesterol 121 mg/dl (50-199); Total Protein 7.1 g/dl (6.3-8.2); Triglyceride 72 mg/dl (10-149); Very Low Density Lipoprotein 14 mg/dl (0-30); eGFR > 60.00
[2024-10-29 16:16] LABS: TSH Reflex To Free T4 2.12 uIU/ml (0.47-4.68)
== END ==
LOC: HWLAB 10:06
PROVIDERS: ATTENDING PHYSICIAN Family Medicine; REFERRING PHYSICIAN Internal Medicine Cardiovascular Disease
DX: I10 Essential (primary) hypertension (principal); B34.9 Viral infection, unspecified; E04.1 Nontoxic single thyroid nodule
CPT/HCPCS: 36415; 80053; 80061; 84443; 85025

== ENCOUNTER 2024-11-18 12:29 | Emergency (ER) | payer MEDICARE, OTHER, SELFPAY ==
[2024-11-18 12:30] VITALS: BP 132/92
--- NOTE | 2024-11-18 15:15 | ED.GENMED ---
History of Present Illness
General
Chief Complaint: Oral/Mouth Problem
Source: patient
Exam Limitations: none
Time Seen by Provider: 11/18/24 15:07
History of Present Illness
History of Present Illness:
84yoF with a history of atrial fibrillation on Xarelto, hypertension, hyperlipidemia, asthma, and pacemaker presenting with her daughter for evaluation of oral bleeding. Patient woke up this morning with blood in her pillow clotted off. She
removed some clots lateral to her tongue. She called her PCP and was told to go to the ED for evaluation. She denies any active bleeding throughout the day and she does have the taste of blood in her mouth when she coughs. She reports ongoing
headaches and nausea for the past several weeks. She denies any fevers, chest pain, shortness of breath worse than baseline.
Past History
Past History
ED Past Medical History: Arrthythmia (Atrial fibrillation), Asthma, CAD, CHF, COPD, HTN, Hypercholesterolemia and Other (cervical radiculopathy, back pain, Brain Aneurysm that they watch, Retinopathy, Thyroid Nodules)
ED Past Surgical History: Cardiac (Pacemaker, Stent X 1), , Gynecological (Hysterectomy), Orthopedic (laminectomy with fusion, Trigger finger release, Carpal tunnel Right) and Other (cataracts, )
Social History
Tobacco: Non-smoker
Alcohol: Occasional
Drug: None
Personal:
Living: with family
Employment: Retired
Family History
Family History: Sudden
Phy Exam
General Physical Exam
General Presentation: well appearing and no apparent distress
General Skin: warm and dry
General Habitus: normal
General Mental: alert
ENT Exam
ENT Exam: normocephalic and other (No oropharyngeal bleeding noted)
Cardiovascular Exam
Cardiovascular Exam: regular rate/rhythm
Pulmonary Exam
Pulmonary Exam: lungs clear, no respiratory distress, no rales, no crackles, no rhonchi and no wheezing
Neurological Exam
Neurological Exam: alert
Kyler Coma Scale
Eye Opening: Spontaneous
Verbal Response: Oriented
Motor Response: Obeys Commands
GCS Total Score: 15
Skin Exam
Skin Exam: normal color and warm/dry
Psychiatric Exam
Psychiatric Exam: normal mood/affect
Course
Orders/Labs/Results
Orders:
Orders
11/18/24 15:14
CT Head W/o Iv Contrast Urgent
Comment:
Reason For Exam: headaches x several weeks
CR Chest - 2 Views Urgent
Comment:
Reason For Exam: cough
11/18/24 16:20
Complete Blood Count/With Diff Urgent
Comprehensive Metabolic Panel Urgent
PT/INR [Prothrombin Time] Urgent
Is patient on Coumadin/Warfarin?: No
Comment: xarelto
PTT Urgent
11/18/24 16:24
Acetaminophen [Tylenol] 1,000 mg PO NOW STA
Abnormal Lab Results
11/18/24
16:20
RBC 4.02 L 10^6/uL
(4.20-5.40)
MCH 31.6 H pg
(27.0-31.0)
Lymphocytes % 18.1 L %
(20.5-51.1)
Monocytes % 9.4 H %
(1.7-9.3)
PT 18.4 H Sec
(11.4-14.6)
APTT 35.9 H Sec
(23.4-35.0)
Chloride 109 H mmol/L
(98-107)
BUN 24 H mg/dl
(7-17)
11/18/24 16:20
11/18/24 16:20
Vital Signs
Initial and Last Documented VS:
Initial Vital Signs
Temp Pulse Resp BP Pulse Ox
97.6 F 72 16 132/92 96
11/18/24 12:30 11/18/24 12:30 11/18/24 12:30 11/18/24 12:30 11/18/24 12:30
Last Documented Vital Signs
Temp Pulse Resp BP Pulse Ox
97.6 F 72 18 132/92 96
11/18/24 12:30 11/18/24 12:30 11/18/24 16:00 11/18/24 12:30 11/18/24 12:30
MDM/Problems Addressed
Differential Diagnosis Includes:
84yoF here after waking up with blood in her mouth this morning. No bleeding throughout the day. On Xarelto. Also c/o nausea and headache x several weeks. Sent here by PCP. NHIS. She is well appearing in no distress. No bleeding noted on exam.
Differential diagnosis includes but is not limited to: minor oropharyngeal trauma, thrombocytopenia, hemoptysis
Initial ED plan: Check CBC, CMP, coags, CT head, and CXR.
*Critical Care Note
Total Time (30-74mins, 75-104mins- exclusive of procedures): Not Applicable
Update Note
Update Note:
Labs overall unremarkable including normal hemoglobin and platelet count. Chest x-ray is clear. CT head negative for acute findings. Patient stable for discharge. Advised follow-up with PCP and ED return precautions reviewed.
ED Attending Note
-
Portions of this chart may have been created with voice recognition software.� Occasional wrong word or��sound alike� substitutions may have occurred due to the inherent limitations of voice recognition software.
Discharge Plan
Departure
Patient Disposition: Home (Routine Discharge)
Date of Disposition: 11/18/24
Time of Disposition: 17:03
Patient with high blood pressure during this ER visit?: No
Discharge Problem:
Bleeding from mouth
Instructions: Bleeding Gums (DC)
Prescriptions:
No Action
oxybutynin chloride 5 MG tablet
5 mg PO DAILY
terazosin 5 MG capsule
5 mg PO HS
ascorbic acid (vitamin C) [Vitamin C] 500 MG tablet
1,000 mg PO DAILY
Trelegy Ellipta 100-62.5-25 mcg blister with device
1 ea INHALATION R DAILY
propranolol 20 MG tablet
20 mg PO DAILYPRN PRN (Reason: palpitations/afib)
dofetilide 250 MCG capsule
250 mcg PO BID
metoprolol succinate 50 mg Tablet Extended Release 24 Hr
50 mg PO DAILY
therapeutic multivitamin Tablet
1 tab PO DAILY
amlodipine 5 mg Tablet
5 mg PO HS
acetaminophen [Tylenol Extra Strength] 500 mg Tablet
1,000 mg PO Q6HPRN PRN (Reason: mild pain)
bupropion HCl 150 mg Tablet Extended Release 24 Hr
150 mg PO DAILY
Xarelto 15 mg Tablet
15 mg PO QPM 30 Days Qty: 30 0RF
furosemide 40 mg Tablet
40 mg PO DAILY 30 Days Qty: 30 0RF
clopidogrel 75 mg Tablet
75 mg PO DAILY 30 Days Qty: 30 0RF
losartan 50 mg Tablet
50 mg PO BID 30 Days Qty: 60 0RF
atorvastatin 40 mg tablet
40 mg PO HS 30 Days Qty: 30 0RF
cetirizine [Zyrtec] 10 mg Tablet
10 mg PO DAILY
cholecalciferol (vitamin D3) 25 mcg (1,000 unit) Tablet
25 mcg PO DAILY
gabapentin [Neurontin] 300 mg capsule
300 mg PO BID Qty: 30 0RF
Referrals:
Yordy Triplett MD [Family Provider, Family Practice]
Activity Restrictions/Additional Instructions:
Please follow-up with your family doctor. Return to the ER with any new or worsening symptoms.
Interventions
Interventions:
*Risk Screen - Suicide Last Done: 11/18/24 12:32
*General Assessment Last Done: 11/18/24 16:23
*Neglect/Abuse Screening Last Done: 11/18/24 12:32
*ED- Fall Risk Assessment Last Done: 11/18/24 16:22
*ED COVID-19 Vaccine History Last Done: 11/18/24 16:22
*Nursing Disposition Last Done: 11/18/24 17:22
Discharge Date and Time
Discharge Date/Time: 11/18/24 17:22
Print Language: SLOVAK
[2024-11-18 16:22] VITALS: BMI 38.8
[2024-11-18] MEDS: TYLENOL 1000 MG PO (16:28)
[2024-11-18 16:30] LABS: % Basophils 0.7 % (0-2); % Eosinophils 3.8 % (0-6); % Immature Granulocytes 0.3 % (0-0.5); % Lymphocytes 18.1 % (20.5-51.1); % Monocytes 9.4 % (1.7-9.3); % Neutrophils 67.7 % (42.2-75.2); Absolute Basophils 0.1 10^3/uL (0-0.2); Absolute Eosinophils 0.3 10^3/uL (0-0.7); Absolute Lymphocytes 1.2 10^3/uL (1.2-3.4); Absolute Monocytes 0.6 10^3/uL (0.1-0.6); Absolute Neutrophils 4.6 10^3/uL (1.4-6.5); Hematocrit 37.1 % (37.0-47.0); Hemoglobin 12.7 g/dL (12.0-16.0); Mean Corp Hgb Conc. 34.2 g/dL (33.0-37.0); Mean Corpuscular Hgb 31.6 pg (27.0-31.0); Mean Corpuscular Volume 92.3 fL (81.0-99.0); Nucleated Red Blood Cells % 0 %; Platelet Count 209 10^3/uL (130-400); Red Blood Cell Count 4.02 10^6/uL (4.20-5.40); Red Cell Dist. Width 13.1 % (11.5-14.5); White Blood Cell Count 6.8 10^3/uL (4.8-10.8)
[2024-11-18 16:41] LABS: INR 1.48; PT 18.4 Sec (11.4-14.6)
[2024-11-18 16:42] LABS: APTT 35.9 Sec (23.4-35.0)
[2024-11-18 16:47] LABS: ALT (SGPT) 20 U/L (0-35); AST (SGOT) 28 U/L (14-36); Albumin 4.5 g/dl (3.5-5.0); Alkaline Phosphatase 74 U/L (38-126); Blood Urea Nitrogen 24 mg/dl (7-17); Calcium 9.9 mg/dl (8.4-10.2); Carbon Dioxide 25 mmol/L (22-30); Chloride 109 mmol/L (98-107); Estimated Creatinine Clearance 55 ml/min; Glucose 92 mg/dl (70-99); Sodium 141 mmol/L (135-145); Total Bilirubin 1.2 mg/dl (0.2-1.3); Total Protein 7.4 g/dl (6.3-8.2); eGFR > 60.00
== END 2024-11-18 17:22 | disposition home or self-care (01) ==
LOC: EMR 12:29
PROVIDERS: Emergency Medicine; EMERGENCY PHYSICIAN Emergency Medicine; FAMILY PHYSICIAN Family Medicine
DX: K13.79 Other lesions of oral mucosa (principal); I48.91 Unspecified atrial fibrillation; I11.0 Hypertensive heart disease with heart failure; I50.9 Heart failure, unspecified; E78.00 Pure hypercholesterolemia, unspecified; I25.10 Atherosclerotic heart disease of native coronary artery without angina pectoris; J44.89 Other specified chronic obstructive pulmonary disease; Z79.01 Long term (current) use of anticoagulants; Z90.710 Acquired absence of both cervix and uterus; Z95.0 Presence of cardiac pacemaker; Z95.5 Presence of coronary angioplasty implant and graft
CPT/HCPCS: 99284; 70450; 71046; 80053; 85025; 85610; 85730

== ENCOUNTER → 2025-01-11 13:42 | Outpatient (REF) | payer MEDICARE, OTHER, SELFPAY | LOC: HWRAD 13:42 | PROVIDERS: ATTENDING PHYSICIAN Family Medicine | DX: E04.1 Nontoxic single thyroid nodule (principal) | CPT/HCPCS: 76536 ==

== ENCOUNTER → 2025-04-11 14:05 | Outpatient (REF) | payer MEDICARE, OTHER, SELFPAY | LOC: HWWDC 14:05 | PROVIDERS: ATTENDING PHYSICIAN Family Medicine | DX: Z12.31 Encounter for screening mammogram for malignant neoplasm of breast (principal) | CPT/HCPCS: 77063; 77067 ==

== ENCOUNTER → 2025-05-06 10:06 | Outpatient (REF) | payer MEDICARE, OTHER, SELFPAY | LOC: HWRAD 10:06 | PROVIDERS: ATTENDING PHYSICIAN Orthopaedic Surgery Hand Surgery; FAMILY PHYSICIAN Family Medicine | DX: M25.512 Pain in left shoulder (principal) | CPT/HCPCS: 73200 ==